=== PATIENT | male | born 1960 | race Caucasian/White ===

== ENCOUNTER 2021-10-24 06:47 | Outpatient (CLI) | payer BC, SELFPAY | END 2021-10-24 06:48 | disposition home or self-care (01) | PROVIDERS: PCP Family Medicine; Visit Provider Family Medicine | DX: M54.16 Radiculopathy, lumbar region (principal); M51.36 Other intervertebral disc degeneration, lumbar region; M51.26 Other intervertebral disc displacement, lumbar region | CPT/HCPCS: 64483; 64484; J1100; Q9966 ==

== ENCOUNTER 2021-12-12 09:19 | Outpatient (CLI) | payer BC, SELFPAY | END 2021-12-12 09:20 | disposition home or self-care (01) | LOC: INJ CL 09:19 | PROVIDERS: PCP Family Medicine; Visit Provider Family Medicine | DX: M54.16 Radiculopathy, lumbar region (principal) | CPT/HCPCS: 64483; 64484; J1100; Q9966 ==

== ENCOUNTER 2022-01-16 07:30 | Outpatient (CLI) | payer BC, SELFPAY | END 2022-01-16 07:31 | disposition home or self-care (01) | LOC: INJ CL 07:30 | PROVIDERS: PCP Family Medicine; Visit Provider Family Medicine | DX: M54.16 Radiculopathy, lumbar region (principal) | CPT/HCPCS: 64483; 64484; Q9966 ==

== ENCOUNTER 2022-01-23 13:48 | Outpatient (CLI) | payer BC, SELFPAY | END 2022-01-23 13:49 | disposition home or self-care (01) | LOC: INJ CL 13:49 | PROVIDERS: PCP Family Medicine; Visit Provider Family Medicine | DX: M54.16 Radiculopathy, lumbar region (principal) | CPT/HCPCS: 64483; Q9966 ==

== ENCOUNTER 2022-03-15 13:23 | Outpatient (CLI) | payer BC, OTHER, SELFPAY ==
--- NOTE | 2022-03-15 13:45 | MR_ITS ---
[address] [address] Phone:?[phone] Fax:?[phone] Referring Physician Information: Codey Mcleod M.D., PhD [address] [facility] [address] Phone:? Fax:?[phone] Patient:?Dusty Quiroga D.O.B:?1960 Sex:?Male Phone:?[phone] [facility] MRN:?[id number] Exam Date:?03/15/2022 ? EXAM: MR LUMBAR SPINE WITHOUT CONTRAST CLINICAL INFORMATION: Lumbar radiculopathy, HNP. COMPARISON:?MRI lumbar spine 10/10/2021. TECHNICAL INFORMATION: T1 and T2 FSE and STIR sagittal thin sections through the lumbar spine with T1 and T2 FSE axial sections at selected levels. INTERPRETATION: 5 lumbar levels in lordotic alignment. Conus medullaris terminates at L1 and has normal signal. No evidence of arachnoid disease or abnormal neural development. Benign vertebral body hemangioma in L3. Paraspinal soft tissues appear normal. L5-S1: Mild to moderate disc degeneration, central right 5 mm disc protrusion without impingement, normal facet joints. No central or foraminal stenosis. L4-5: Moderate disc degeneration, central 5-6 mm disc herniation, encroaches left greater than right L5 nerve roots, normal facet joints. No central stenosis. Mild bilateral foraminal stenosis. L3-4: Mild disc degeneration, disc bulge and right foraminal to far lateral 5 mm disc herniation extraforaminal the right L3 nerve, normal facet joints. No central stenosis. Mild to moderate right and mild left foraminal stenosis. L2-3: Mild disc degeneration, right extraforaminal 5 mm disc herniation displaces the right L2 nerve, normal facet joints. No central stenosis. Mild right foraminal stenosis. L1-2: Mild disc degeneration, normal facet joints. No central or foraminal stenosis. T12-L1: No central or foraminal stenosis. Compared to 10/10/2021 the L4-5 central disc herniation has slightly increased. The L5-S1 disc herniation has partially regressed. CONCLUSION: Multilevel spondylosis with the following notable findings: 1. L2-3 and L3-4 right-sided disc herniations displace the extraforaminal right L2/L3 nerves. 2. L4-5 central disc herniation encroaching the L5 nerve roots. 3. L5-S1 central herniation/osteophyte without neural compromise. Electronically signed on 03/18/2022 4:16:00 PM by Toro Combs M.D.
== END 2022-03-15 13:24 | disposition home or self-care (01) ==
PROVIDERS: PCP Family Medicine; Visit Provider Orthopaedic Surgery Orthopaedic Surgery of the Spine
DX: M51.16 Intervertebral disc disorders with radiculopathy, lumbar region (principal); M51.26 Other intervertebral disc displacement, lumbar region
CPT/HCPCS: 72148

== ENCOUNTER 2022-09-10 10:00 | Outpatient (RCR) | payer OTHER, SELFPAY | END 2022-12-21 09:17 | disposition home or self-care (01) | PROVIDERS: PCP Family Medicine; Visit Provider Orthopaedic Surgery Orthopaedic Surgery of the Spine | DX: M54.50 Low back pain, unspecified (principal); R53.1 Weakness; Z51.89 Encounter for other specified aftercare | CPT/HCPCS: 97110; 97140; 97161 ==

== ENCOUNTER 2023-10-01 14:01 | Outpatient (CLI) | payer MEDICARE, SELFPAY ==
--- OUTSIDE RECORDS SUMMARY | 2023-10-01 14:06 | XMS_ITS | Continuity of Care Document ---
Author Organization [place] [facility] Address [address] [address] Assessment No assessment recorded. Plan of Treatment Reminders Order Date Submit Date Provider Last Modified By Organization Details Last Modified Time Details Appointments LAB BLOOD DRAW 2023 11:10A [facility] Not available Not available Not available ESTABL ISHED 10 2023 11:30P M Guillermo Sparks MD Not available Not available Not available Lab PSA, total, serum or plasma 2023 024 [email or web address] [facility], [address], [place], [address], 08/27/2023 09:35:27 urinal ysis, dipsti ck 2023 024 [email or web address] [facility], [address], [place], [address], 08/26/2023 12:23:12 Referral None record ed. Procedures None record ed. Surgeries None record ed. Imaging CT, abdome n + pelvis , w/o contra st - PLEASE CALL PT TO SCHEDU LE 2023 024 [email or web address] ro [facility], [address] , [place], [address], 09/10/2023 11:56:18 Medication Orders None record ed. Patient TargetsNo targets recorded. Patient InstructionsNo instructions recorded. Reason for Referral None Reported. Results Created Date Observation Date Name Description Value Unit Range Abnormal Flag LastModifiedBy Organization Detail LastModifiedTime 08/26/1925 0808/26/2023 urina lysis , dipst ick BLOOD Trace (5 RBC/uL ) Not Available [facility] [address], [place], [address], 08/26/2023 12:06:39 08/26/19 24 08/26/2023 urina lysis , dipst ick BILIRUBIN Negati ve Not Available [facility] [address], [place], [address], 08/26/2023 12:06:39 08/26/19 24 08/26/2023 urina lysis , dipst ick UROBILINOGEN 0.2 mg/dL (Norm) Not Available [facility] [address], [place], [address], 08/26/2023 12:06:39 08/26/19 24 08/26/2023 urina lysis , dipst ick KETONES Negati ve Not Available [facility] [address], [place], [address], 08/26/2023 12:06:39 08/26/19 24 08/26/2023 urina lysis , dipst ick PROTEIN Negati ve Not Available [facility] [address], [place], [address], 08/26/2023 12:06:39 08/26/19 24 08/26/2023 urina lysis , dipst ick NITRITES Negati ve Not Available [facility] [address], [place], [address], 08/26/2023 12:06:39 08/26/19 24 08/26/2023 urina lysis , dipst ick GLUCOSE Negati ve Not Available [facility] [address], [place], [address], 08/26/2023 12:06:39 08/26/19 24 08/26/2023 urina lysis , dipst ick p.H. 5.0 Not Available [facility] [address], [place], [address], 08/26/2023 12:06:39 08/26/19 24 08/26/2023 urina lysis , dipst ick S.G. (Specific [place]) 1.020 Not Available [facility] [address], [place], [address], 08/26/2023 12:06:39 08/26/19 24 08/26/2023 urina lysis , dipst ick LEUKOCYTES Negati ve Not Available [facility] [address], [place], [address], 08/26/2023 12:06:39 Result Notes None recorded. Procedures Surgical History Date Name Laterality Status Provider Name and Address Organization Details Recorded Time 4 Bladder Scan completed Abi juarez [facility] 08/26/2023 12:06:16 3 discectomy of spine completed Abi juarez [facility] 08/26/2023 12:05:09 Imaging Results None recorded. Procedure Notes None recorded. Medical Equipment None Reported. Allergies Allergen ID Allergen Name Allergen Category Reaction Reaction Severity Criticality Documentation Date Start Date Code Code System Note Provider Name and Address Organization Details Recorded Time 932877 codeine medicatio n Not available Not available Not available 08/20/20192016 2670 RxNorm Not Available [facility] 0 00:42:13 551163 Toradol medicatio n Not available Not available Not available 08/20/20192016 99609 RxNorm Not Available [facility] 0 00:42:13 123531 morphine medicatio n Not available Not available Not available 08/26/2023 7052 RxNorm Aib juarez [facility] 4 12:03:10 Medications Name Sig Start Date Stop Date Status Note LastModified by Organization Details LastModified Time methocarbamol 750 mg tablet TAKE ONE TABLET BY MOUTH FOUR TIMES DAILY NEEDED* active Not Available Not Available No t Available gabapentin 300 mg capsule TAKE TWO CAPSULES BY MOUTH THREE TIMES DAILY* active Not Available Not Available No t Available hydrochlorothi azide 25 mg tablet TAKE ONE TABLET BY MOUTH ONE TIME DAILY* active Not Available Not Available No t Available alfuzosin ER 10 mg tablet,extende d release 24 hr TAKE 1 TABLET BY MOUTH DAILY WITH A MEAL* active Not Available Not Available No t Available Probiotic active Not Available Not Earlene ilable Not Available Xarelto 10 mg tablet Take 1 Tablet (10 mg) by mouth once daily with a meal.* active Not Available Not Available No t Available Vitals Date Recorded Body height Body mass index (BMI) Body weight Provider Name and Address Organization Details Last Updated DateTime 08/26/2023 177.8 cm 35.2 kg/m2 885335.13 g Abi Almeida [facility] 08/26/2023 12:02:44 Social History Question Answer Notes LastModified by Organizat ion Details LastModified Time Tobacco Smoking Status Never Smoker Abi juarez [facility] 08/26/2023 12:04:34 What Is Your Level Of Alcohol Consumption? Occasional [email or web address] Information not available 08/26/2023 What Is Your Level Of Caffeine Consumption? Moderate [email or web address] Information not available 08/26/2023 Race White Information not available 08/26/2023 Ethnicity Not / [email or web address] Information not available 08/26/2023 Preferred Language Polish [email or web address] Information not available 08/26/2023 Sex: Unknown Functional Status None recorded. Mental Status None recorded. Family History Relationship Description Onset Age of this Age Resolved Age Notes Sister Family history of br east cancer Sister Family history of ca ncer of colon Medical History Condition Response Diabetes N Other Bleeding Disorder N High Blood Pressure Y Kidney Stones Y Cancer N Lung Disease N Depression N High Cholesterol N GERD/Acid Reflux N Heart Disease N Immunizations Vaccine Type Date Status Provider Name and Address Organization Details Recorded Time Influenza, split virus, quadrivalent, preservative 11/29/2015 completed Abi juarez [facility] 08/26/2023 12:02:53 Influenza, MDCK, quadrivalent, PF 12/17/2016 rashad Almeida null, [facility] 08/26/2023 12:02:53 zoster recombinant 04/27/2019 completed Abimeliza Almeida null, [facility] 08/26/2023 12:02:53 zoster recombinant 02/16/2019 completed Abimeliza Tatumon null, [facility] 08/26/2023 12:02:53 COVID-19, mRNA, LNP-S, PF, 30 mcg/0.3 mL dose 05/17/2020 completed Abimeliza Tatumon null, [facility] 08/26/2023 12:02:53 COVID-19, mRNA, LNP-S, PF, 30 mcg/0.3 mL dose 06/07/2020 completed Abi Almeida null, [facility] 08/26/2023 12:02:53 COVID-19, mRNA, LNP-S, PF, 30 mcg/0.3 mL dose 02/07/2021 [facility] 12:02:53 Pneumococcal conjugate PCV20, polysaccharide [id number] conjugate, adjuvant, PF 07/30/2023 completed Abi Almeida null, [facility] 08/26/2023 12:02:53 COVID-19, mRNA, LNP-S, bivalent, PF, 30 mcg/0.3 mL dose 11/15/2021 [facility] 08/26/[facility]23 12:02:53 Tdap 02/16/2019 completed Abi Almeida null, [facility] 08/26/2023 12:02:53 Influenza, split virus, trivalent, preservative 12/07/2008 completed Abi Almeida null, [facility] 08/26/2023 12:02:53 Influenza, split virus, trivalent, preservative 01/03/2010 completed Abi Juan Pablo null, [facility] 08/26/2023 12:02:53 Influenza, split virus, trivalent, preservative 01/06/2008 [facility] 12:02:53 Influenza, split virus, trivalent, preservative 01/28/2012 completed Abi Almeida null, [facility] 08/26/2023 12:02:53 Influenza, split virus, quadrivalent, PF 11/20/2022 completed Abimeliza Almeida null, [facility] 08/26/2023 12:02:53 Influenza, split virus, quadrivalent, PF 12/02/2017 completed Abi Almeida null, [facility] 08/26/2023 12:02:53 Influenza, split virus, quadrivalent, PF 12/08/2018 completed Abi Almeida null, [facility] 08/26/2023 12:02:53 Influenza, split virus, quadrivalent, PF 12/12/2020 completed Abi Almeida null, [facility] 08/26/2023 12:02:54 Influenza, split virus, quadrivalent, PF 12/21/2019 completed Abi Almeida null, [facility] 08/26/2023 12:02:54 Influenza, split virus, quadrivalent, 12/20/2021 completed Abi Almeida null, [facility] 08/26/2023 12:02:54 Past Encounters Encounter ID Performer Location Encounter Start Date Encounter Closed Date Diagnosis/Indication Diagnosis SNOMED-CT Code [id number] Guillermo Sparks MD [facility] [address] [place] [address] 08/26/2023 11:29:53 08/27/2023 15:17:25 Lower urinary tract symptoms due to benign prostatic hypertrophy 46249085628983 Kidney stone 38355065 Prostate s pecific antigen above reference range 194035761 Health Concerns Section Related Observation LastModified by Organization Detai ls LastModified Time None Recorded Concern Status LastModified by Organization Details LastModified Time None Recorded Payers Encounter Date Sequence Insurance Name Policy Number Policy Nobles Covered Member ID Nobles Member ID Guarantor Name 08/26/2023 1 [place] MEDICARE COST [id number] Dusty Quiroga [id number] Dusty Quiroga Notes Date Note Type Note Provider Name and Address Organization Details Recorded Time 08/26/2023 text/html HPI Notes: 63 yo male with history of HTN, DVT (on Xarelto), CKD (stage 3), GERD (s/p lap. Kate fundoplication), kidney stones (since age 27 - 100% Calcium oxalate monohydrate), microscopic hematuria, and BPH. He had a negative hematuria evaluation in 2014 - CT Urogram (09/24-) revealed bilateral kidney stones, Left renal cysts and parapelvic cyst, and a 1 cm adrenal adenoma - Cystoscopy (09/24/14) revealed mild BPH - urine FISH was negative. He tried Flomax 0.4 mg QOD (light headedness). He is currently on Alfuzosin 10 mg daily. - s/p Left ESWL with stent placement - (01/20/16) - Dr. Calderon - s/p Right ESWL - (08/02/16) He presents for elevated PSA. He denies abdominal or flank pain. He voids every 3-4 hours during the day and 0x/night. He reports hesitancy and slow stream. - UA - 1+ blood - no LE - PVR = 9 mL PSA - 0.59 (11/10/13) - 0.79 (09/27/14) - 0.78 (10/31/15) - 1.06 (08/05/17) - 1.42 (08/04/18) - 1.37 (12/08/18) - 1.60 (11/02/19) - 2.40 (06/27/20) - 2.02 (09/26/20) - 2.94 (07/30/23) CT scan (08/05/17) - Right - no stones - Left - 2 mm stone (lower pole) - + parapelvic cyst CT scan (08/04/18) - No stones in either kidney - Left parapelvic cyst 24 Hr urine (10/20/13) revealed high Calcium (308 mg), high Sodium (253 mg), and high Phosphorous (1.245) - good urine volume (3.76 L) and good Citrate (679 mg). PTH = 80.4 (11/10/13). Guillermo Sparks MD [address], [place], [address], [facility] 08/26/2023 23:11:47
--- OUTSIDE RECORDS SUMMARY | 2023-10-01 14:06 | XMS_ITS | Data Portability ---
Author Organization [place] [facility] Address [address] [place] [address] Assessment No assessment recorded. Plan of Treatment Reminders Order Date Submit Date Provider Last Modified By Organization Details Last Modified Time Details Appointments LAB BLOOD DRAW 2023 11:10A [facility] Not available Not available Not available ESTABL ISHED 10 2023 11:30P M Guillermo Sparks MD Not available Not available Not available Lab PSA, total, serum or plasma 2023 024 [email or web address] [facility], [address], [place], [address], 08/27/2023 09:35:27 urinal ysis, dipsti ck 2023 024 [email or web address] [facility], [address], [place], [address], 08/26/2023 12:23:12 Referral None record ed. Procedures None record ed. Surgeries None record ed. Imaging CT, abdome n + pelvis , w/o contra st - PLEASE CALL PT TO SCHEDU LE 2023 024 [email or web address] ro [facility], [address], [place], [address], 09/10/2023 11:56:18 Medication Orders None record ed. Patient TargetsNo targets recorded. Patient InstructionsNo instructions recorded. Reason for Referral None Reported. Results Created Date Observation Date Name Description Value Unit Range Abnormal Flag LastModifiedBy Organization Detail LastModifiedTime 08/26/19 24 08/26/2023 urina lysis , dipst ick BLOOD Trace (5 RBC/uL ) Not Available [facility] [address], [place], [address], 08/26/2023 12:06:39 08/26/19 24 08/26/2023 urina lysis , dipst ick BILIRUBIN Negati ve Not Available [facility] [address], [place], [address], 08/26/2023 12:06:39 08/26/19 24 08/26/2023 urina lysis , dipst ick UROBILINOGEN 0.2 mg/dL (Norm) Not Available [facility] [address], [place], [address], 08/26/2023 12:06:39 08/26/19 24 08/26/2023 urina lysis , dipst ick KETONES Negati ve Not Available [facility] [address], [place], [address], 08/26/2023 12:06:39 08/26/19 24 08/26/2023 urina lysis , dipst ick PROTEIN Negati ve Not Available [facility] [address], [place], [address], 08/26/2023 12:06:39 08/26/19 24 08/26/2023 urina lysis , dipst ick NITRITES Negati ve Not Available [facility] [address], [place], [address], 08/26/2023 12:06:39 08/26/19 24 08/26/2023 urina lysis , dipst ick GLUCOSE Negati ve Not Available [facility] [address], [place], [address], 08/26/2023 12:06:39 08/26/19 24 08/26/2023 urina lysis , dipst ick p.H. 5.0 Not Available [facility] [address], [place], [address], 08/26/2023 12:06:39 08/26/19 24 08/26/2023 urina lysis , dipst ick S.G. (Specific [place]) 1.020 Not Available [facility] [address], [place], [address], 08/26/2023 12:06:39 08/26/19 24 08/26/2023 urina lysis , dipst ick LEUKOCYTES Negati ve Not Available [facility] [address], [place], [address], 08/26/2023 12:06:39 Result Notes None recorded. Procedures Surgical History Date Name Laterality Status Provider Name and Address Organization Details Recorded Time 4 Bladder Scan completed Abi juarez [facility] 08/26/2023 12:06:16 3 discectomy of spine completed Abi juarez [facility] 08/26/2023 12:05:09 Imaging Results None recorded. Procedure Notes None recorded. Medical Equipment None Reported. Allergies Allergen ID Allergen Name Allergen Category Reaction Reaction Severity Criticality Documentation Date Start Date Code Code System Note Provider Name and Address Organization Details Recorded Time 065531 codeine medicatio n Not available Not available Not available 08/20/20192016 2670 RxNorm Not Available [facility] 0 00:42:13 629454 Toradol medicatio n Not available Not available Not available 08/20/20192016 87131 RxNorm Not Available [facility] 0 00:42:13 031788 morphine medicatio n Not available Not available Not available 08/26/2023 7052 RxNorm Abi juarez [facility] 4 12:03:10 Medications Name Sig Start [...] Updated DateTime 08/26/2023 177.8 cm 35.2 kg/m2 973548.13 g Abi Almeida [facility] 08/26/2023 12:02:44 Social History Question Answer Notes LastModified by Organizat ion Details LastModified Time Tobacco Smoking Status Never Smoker Abi juarez [facility] 08/26/2023 12:04:34 What Is Your Level Of Alcohol Consumption? Occasional [email or web address] Information not available 08/26/2023 What Is Your Level Of Caffeine Consumption? Moderate [email or web address] Information not available 08/26/2023 Race White [email or web address] Information not available 08/26/2023 Ethnicity Not / [email or web address] Information not available 08/26/2023 Preferred Language Icelandic [email or web address] Information not available 08/26/2023 Sex: Unknown Functional Status None recorded. Mental Status None recorded. Family History Relationship Description Onset Age of this Age Resolved Age Notes Sister Family history of br east cancer Sister Family history of ca ncer of colon Medical History Condition Response Other High Blood Pressure Y Kidney Stones Y Depression N Lung Disease N GERD/Acid Reflux N Diabetes N Bleeding Disorder N Cancer N High Cholesterol N Heart Disease N Immunizations Vaccine Type Date Status Provider Name and Address Organization Details Recorded Time Influenza, split virus, quadrivalent, preservative 11/29/2015 completed Abi juarez [facility] 08/26/2023 12:02:53 Influenza, MDCK, quadrivalent, PF 12/17/2016 completed Abi Almeida null, [facility] 08/26/2023 12:02:53 zoster recombinant 04/27/2019 completed Abi Almeida null, [facility] 08/26/2023 12:02:53 zoster recombinant 02/16/2019 completed Abi Almeida null, [facility] 08/26/2023 12:02:53 COVID-19, mRNA, LNP-S, PF, 30 mcg/0.3 mL dose 05/17/2020 completed Abi Almeida null, [facility] 08/26/2023 12:02:53 COVID-19, mRNA, LNP-S, PF, 30 mcg/0.3 mL dose 06/07/2020 completed Abi Almeida null, [facility] 08/26/2023 12:02:53 COVID-19, mRNA, LNP-S, PF, 30 mcg/0.3 mL dose 02/07/2021 [facility] 12:02:53 Pneumococcal conjugate PCV20, polysaccharide [id number] conjugate, adjuvant, PF 07/30/2023 [facility] 08/26/[facility] 12:02:53 COVID-19, mRNA, LNP-S, bivalent, PF, 30 mcg/0.3 mL dose 11/15/2021 completed [facility] 08/26/2023 12:02:53 Tdap 02/16/2019 completed Abi Almeida null, [facility] 08/26/2023 12:02:53 Influenza, split virus, trivalent, preservative 12/07/2008 completed Abi Almeida null, [facility] 08/26/2023 12:02:53 Influenza, split virus, trivalent, preservative 01/03/2010 completed Abi Almeida null, [facility] 08/26/2023 12:02:53 Influenza, split virus, trivalent, preservative 01/06/2008 completed Abi Almeida null, [facility] 08/26/2023 12:02:53 Influenza, split virus, trivalent, preservative 01/28/2012 completed Abi Almeida null, [facility] 08/26/2023 12:02:53 Influenza, split virus, quadrivalent, PF 11/20/2022 completed Abi Almeida null, [facility] 08/26/2023 12:02:53 Influenza, split virus, quadrivalent, PF 12/02/2017 completed Abi Almeida null, [facility] 08/26/2023 12:02:53 Influenza, split virus, quadrivalent, PF 12/08/2018 completed Abi Almeida null, [facility] 08/26/2023 12:02:53 Influenza, split virus, quadrivalent, PF 12/12/2020 completed Abi Almeida null, [facility] 08/26/2023 12:02:54 Influenza, split virus, quadrivalent, PF 12/21/2019 completed Abi Almeida null, [facility] 08/26/2023 12:02:54 Influenza, split virus, quadrivalent, 12/20/2021 completed Abi Almeida null, [facility] 08/26/2023 12:02:54 Past Encounters Encounter ID Performer Location Encounter Start Date Encounter Closed Date Diagnosis/Indication Diagnosis SNOMED-CT Code [id number] Guillermo Sparks MD [facility] [address] [place] [address] 08/26/2023 11:29:53 08/27/2023 15:17:25 Lower urinary tract symptoms due to benign prostatic hypertrophy 50673738165792 Kidney stone 12227712 Prostate s pecific antigen above reference range 830478688 Health Concerns Section Related Observation LastModified by Organization Detai ls LastModified Time None Recorded Concern Status LastModified by Organization Details LastModified Time None Recorded Advance Directives Directive None Recorded Payers Encounter Date Sequence Insurance Name Policy Number Policy Nobles Covered Member ID Nobles Member ID Guarantor Name 08/26/2023 1 [place]IC[place] COST [id number] Dusty Quiroga [id number] Dusty Quiroga Notes Date Note Type Note [...] PTH = 80.4 (11/10/13). Guillermo Sparks MD [address], [place], [address], [facility] 08/26/2023 23:11:47
--- OUTSIDE RECORDS SUMMARY | 2023-10-01 14:06 | XMS_ITS | Clinical Summary ---
Author Organization [employer] [facility] Address [place], [place] [address] Care Team Providers Care Case Mgr Name Role Phone Tien Mulligan MD Primary Care Provider [phone] Allergies Active Allergy Reactions Criticality Noted Date Comments Codeine Hives 10/02/2006 Morphine Hives 10/02/2006 Ketorolac Renal Failure 08/17/2013 Medications Medication Sig Dispensed Refills Start Date End Date Status lactobacillus 300 - acidophilus 250 (PROBIOTIC AND ACIDOPHILUS) cap Take 1 Capsule by mouth once daily. 0 06/05/2011 Active medical supply, miscellaneous (GRADUATED COMPRESSION STOCKINGS)Indicatio ns:Deep vein thrombosis (DVT) of both lower extremities, unspecified chronicity, unspecified vein (HC) 20-30 mm/Hg thigh high compression stockings - Venous insufficiency 6 Packet 01/11/2020 Active rivaroxaban (Xarelto) 10 mg tabletIndications:D eep vein thrombosis (DVT) of both lower extremities, unspecified chronicity, unspecified vein (HC) Take 1 Tablet (10 mg) by mouth once daily with evening meal. 90 Tablet 3 07/30/2023 Active hydroCHLOROthiazide 25 mg tabletIndications:E ssential hypertension Take 1 Tablet (25 mg) by mouth once daily. 90 Tablet 3 07/30/2023 Active alfuzosin (UROXATRAL) 10 mg Sustained-Release tabletIndications:B enign non-nodular prostatic hyperplasia without lower urinary tract symptoms TAKE 1 TABLET BY MOUTH DAILY WITH A MEAL 90 Tablet 3 07/30/2023 Active gabapentin (NEURONTIN) 300 mg capsuleIndications: Lumbar radiculopathy Take 2 Capsules (600 mg) by mouth three times daily. 540 Capsule 3 07/30/2023 Active methocarbamoL (ROBAXIN) 750 mg tabletIndications:M uscle spasm,Racing heart beat Take 1 Tablet (750 mg) by mouth 3 times daily if needed for Muscle Spasm. Wait until they call for this. 60 Tablet 1 07/30/2023 Active predniSONE (DELTASONE) 10 mg tabletIndications:R ight leg pain,Lumbar radiculopathy,Histo ry of lumbar laminectomy for spinal cord decompression,Bulge of lumbar disc without myelopathy Take 2 Tablets (20 mg) by mouth two times daily with meals for 3 days, THEN 1 Tablet (10 mg) three times daily with meals for 3 days, THEN 2 Tablets (20 mg) once daily with a meal for 3 days, THEN 1 Tablet (10 mg) once daily with a meal for 3 days. 30 Tablet 09/25/2023 Active Active Problems Problem Noted Date Diagnosed Date Herniated nucleus pulposus, L3-4 03/20/2022 Nonrheumatic aortic valve insufficiency 03/15/19 Overview: Mild. Present on 03/15/22 echocardiogram. Repeat echo recommended in 3-5 years or sooner if symptomatic. Status post laparoscopic Kaet fundoplication 0 03/14/2022 Vertigo 03/14/2022 Lumbar radiculopathy 11/22/2021 History of pulmonary embolism and right DVT 01/02 Overview: The following is from a vascular surgery consult with Dr. Russ at [facility]: I had a long discussion with the patient about the pathophysiology, diagnosis, management and prognosis of venous thromboembolism and discussed the current guidelines for the management of unprovoked event recommending long-term anticoagulation. 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 Continue on Xarelto 15 mg twice daily to finish 3 weeks then transition to 20 mg daily with food. 6 months later, he could transition to Xarelto 10 mg without food for long-term as long as his bleeding risk is low. Prescribed her thigh-high, 20 to 30 mmHg compression stockings and advised that he wears them daily since he continues to have considerable pain and swelling. Should have a CBC and creatinine with primary care physician every 6 to 12 months. Advised to avoid long peers of sitting or standing. Advised with leg elevation resting. Advised with daily walk exercises. 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 Essential hypertension 12/02/2017 MRSA (methicillin resistant staph aureus) cultur e positive 03/17/2016 CKD (chronic kidney disease) stage 3, GFR 30-59 ml/min 01/19/2016 Hydronephrosis of left kidney 01/19/2016 Obesity (BMI 30-39.9) 01/19/2016 Benign non-nodular prostatic hyperplasia without lower urinary tract symptoms 05/02/2015 Adenomatous colon polyp 12/30/2013 Overview: Colonoscopy 12/2013 polyp repeat in 5 years Colonoscopy 02/2019 normal, repeat in 5 years Basal cell cancer 08/21/2011 Calculus of kidney 07/18/2007 Esophageal reflux 05/09/2007 Overview: EGD 12/2013 no Bravo's, no follow up EGD needed EGD 09/2019 5 cm Hiatal hernia, intestinal metaplasia at z-line, Bravo's unlike Diaphragmatic hernia without mention of obstruction or gangrene 05/09/2007 Resolved Problems Problem Noted Date Diagnosed Date Resolved Date HTN (hypertension) 05/16/2009 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 [address] [place] [address] James House MD Musculoskeletal Problem (Follow up back pain. Surgery 03/2022) 09/25/2023 Travel 09/06/2023 11:00 AM CDT Ancillary Procedure [facility] [address] [place] [address] 09/06/2023 Travel 08/26/2023 Transcribe Orders [facility] Medical Imaging [address] [place] [address] Guillermo Sparks MD 08/01/2023 4:00 PM CDT Office Visit [place] [address] [place] [address] 07/30/2023 12:40 PM CDT Office Visit [facility] [address] [place] [address] Tien Mulligan MD Medicare [facility] Visit (63 years); Immunization/Injection 07/30/2023 Travel from Last 3 Months Immunizations Name Administration Dates Next Due AMB Influenza, IIV3 (Age >=3 years)(Flu Clinic Only) 12/07/2008 AMB Influenza, IIV4 PF (=>6 mos Flulaval,Fluzone Fluarix)(Flu Clinic Only) 12/21/2019,12/08/2018,12/17/2016 Influenza, IIV3 (Age >=3 years) 01/28/2012,01/03,01/06/2008 Influenza, IIV4 11/20/2022,,12/12/2020,2017,11/28/2015 Pneumococcal Conj 20-valent (Prevnar 20) 07/30/2023 Td (Age >=7 Years) 05/11/2008,05/21/1993 Tdap 02/16/2019 Zoster (Shingrix-RZV, recombinant) 04/27/2019, Family History Medical History Relation Name Comments Heart Disease Father PA at 87 and d ied shortly after of CHF/History of Atrial Fibrillation Hypertension Father Other Father at 96 of o ld age Cancer-breast Maternal Uncle Diabetes Mother Age 60 Cancer-colon Paternal Aunt Stroke Paternal Grandmother ag e 60 Cancer Paternal Uncle 1 Esophageal Cancer Paternal Uncle 2 Kidney Stroke Paternal Uncle 3 Cancer-breast Sister 1 Leah remission Cancer-colon Sister 1 Leah in chemo as of 02/2019 Other Sister 1 Leah both sisters wi th hx of nephrolithiasis Scleroderma Sister 2 Pretty Relation Name Status Comments Brother Richi Alive Father Maternal Uncle Mother Paternal Aunt Paternal Grandmother Paternal Uncle 1 Paternal Uncle 2 Paternal Uncle 3 Sister 1 Leah Sister 2 Pretty Alive Sister 3 Sirena Alive Social History Tobacco Use Types Packs/Day Years Used Date Smoking Tobacco: Never Smokeless Tobacco: Never Tobacco Cessation:Counseling Given: Yes Alcohol Use Standard Drinks/Week Comments Yes 0 (1 standard drink = 0.6 oz pur e alcohol) see screening PHQ-2 Answer Date Recorded PHQ-2 TOTAL SCORE 0 07/30/2023 Social Connections Answer Date Recorded Frequency of Communication with Friends and Fami ly 0 07/30/2023 Alcohol Use Answer Date Recorded How often do you have a drink containing alcohol ? 2 07/30/2023 How many drinks containing a lcohol do you have on a typical day when you are drinking? 0 07/30/2023 How often do you have five or more drinks on one occasion? 0 07/30/2023 Financial Resource Strain Answer Date R ecorded Difficulty of Paying Living Expenses 3 07/30/2023 Difficulty of Paying Living Expenses Not on file 07/30/2023 Food Insecurity Answer Date Recorded Worried About Running Out of Food in the Last Ye ar 1 07/30/2023 Transportation Needs Answer Date Record ed Lack of Transportation (Medical) 1 07/30/2023 Housing Stability Answer Date Recorded Unable to Pay for Housing in the Last Year 1 07/30/2023 Sex and Gender Information Value Date Recorded Sex Assigned at Not on file Gender Identity Not on file Sexual Orientation Not on file Obstetrics History Last Filed Vital Signs Vital Sign Reading Time Taken Comments Blood Pressure 147/89 09/25/2023 11:01 AM CDT Pulse 72 09/25/2023 11:01 AM CDT Temperature 36.8 ??C (98.2 ??F) 09/25/2023 11:01 AM C DT Respiratory Rate 14 03/20/2022 4:45 PM FIELD INVESTIGATOR Oxygen Saturation 96% 09/25/2023 11:01 AM CDT Inhaled Oxygen Concentration - - Weight 110.2 kg (243 lb) 09/25/2023 11:01 AM CDT shoes on Height 177.9 cm (5' 10.04) 07/30/2023 12:34 PM CDT Body Mass Index 34.83 07/30/2023 12:34 PM CDT Plan of Treatment Upcoming Encounters Date Type Department Care Team (Late st Contact Info) Description 10/14/2023 9:50 AM CDT Office Visit [facility] [address] [place] [address] [place] [address] [place] [address] [place], [place] [id number] Health Maintenance Due Date Last Done Comments HIV for age 15-65 1975 COVID-19 vaccine series (2022- season) 2022 11/15/2021, 02/07/2021, 06/07/2020, Additional history exists Influenza for age 65+ 11/03/2023 11/20/2022 , 12/20/2021, 12/12/2020, Additional history exists Colonoscopy through age 75 02/04/202402/03, 02/03/2019, 02/03/2019, Additional history exists BMI (ht and wt on same day) for age 18+ 07/29/2024 07/30/2023, 03/14/2022, 01/31/2022, Additional history exists Depression screening for age 12+ 07/29/2024 07/30/2023, 08/22/2022, 12/12/2020, Additional history exists Medicare Wellness for age 65+ 07/30/2024 07/30/2023 Lipids for age 45-75 07/29/2028 07/30/2023, 12/12/2020, 12/05/2020, Additional history exists Tetanus booster 02/16/2029 02/16/2019, 05/02, 05/21/1993 Tdap Completed 02/16/2019 Zoster (shingles) series for age 50+ Completed 04/27/2019, 02/16/2019 Hepatitis C screening for ag e 18-79 Completed 11/02/2019 Pneumococcal series for age 65+ Completed 4 Medical Devices Implanted Type Area Machine Lay Out Worker Device Identifier Shelf Expiration Date Model / Serial / Lot Stent Uret [id number] Contour - [id number] Implanted:Qty: 1 on 01/20/2016 by Paul Calderon MD at [facility] Left: Ureter [facility] Urology [id number] / / [id number] Procedures Procedure Name Priority Date/Time Associated Diagnosis Comments CT ABDOMEN PELVIS STONE PROTOCOL WO Routine 09/06/2023 10:58 AM CDT Calculus of kidney EXTENDED HOLTER Routine 08/29/2023 Racing heart beat EKG 12 LEAD Routine 07/31/2023 8:58 AM CDT Racing heart beat Low blood pressure reading PA READING EKG - NO CHARGE, COMP ONLY Routine 07/31/2023 8:57 AM CDT Racing heart beat Low blood pressure reading RED CELL MORPHOLOGY Routine 07/30/2023 1 :52 PM CDT Deep vein thrombosis (DVT) of both lower extremities, unspecified chronicity, unspecified vein (HC) PLATELET ESTIMATE Routine 07/30/2023 1:5 2 PM CDT Deep vein thrombosis (DVT) of both lower extremities, unspecified chronicity, unspecified vein (HC) MANUAL DIFFERENTIAL Routine 07/30/2023 1 :52 PM CDT Deep vein thrombosis (DVT) of both lower extremities, unspecified chronicity, unspecified vein (HC) CBC WITH AUTO DIFFERENTIAL Routine 07/30/2023 1:52 PM CDT Deep vein thrombosis (DVT) of both lower extremities, unspecified chronicity, unspecified vein (HC) PSA TOTAL SCREEN Routine 07/30/2023 1:52 PM CDT Prostate cancer screening LIPID PANEL W REFLEX MEASURED LDL Routine 07/30/2023 1:52 PM CDT Lipid screening BASIC METABOLIC PANEL Routine 07/30/2023 1:52 PM CDT Essential hypertension TSH WITH REFLEX Routine 07/30/2023 1:52 PM CDT Racing heart beat ALT (SGPT) Routine 07/30/2023 1:52 PM CDT Deep vein thrombosis (DVT) of both lower extremities, unspecified chronicity, unspecified vein (HC) CBC WITH AUTO DIFFERENTIAL Routine 07/30/2023 1:52 PM CDT Deep vein thrombosis (DVT) of both lower extremities, unspecified chronicity, unspecified vein (HC) ANTI HCV Routine 11/02/2019 2:00 PM CDT Need for hepatitis C screening test COLONOSCOPY SCREENING Routine 02/03/2019 8:53 AM FIELD INVESTIGATOR History of colon polyps from Last 3 Months or Most Recently Relevant to Health Maintenance Results * CT ABDOMEN PELVIS STONE PROTOCOL WO (09/06/2023 10:58 AM CDT) Anatomical Region Laterality Modality Abdomen, Pelvis, AORTA, LIVER, SPLEEN Computed Tomography 09/06/2023 1:05 PM CDT Impressions 09/06/2023 1:05 PM CDT 1. No acute abnormality in the abdomen or pelvis. 2. Punctate nonobstructing bilateral renal calculi. No radiopaque ureteral or bladder calculi. 3. Colonic diverticulosis. Please note that all CT scans at this facility use dose modulation, iterative reconstruction, and/or weight-based dosing when appropriate to reduce radiation dose to as low as reasonably achievable. Dictated by Rakesh Ponce MD @ 09/06/2023 1:05:24 PM (Electronically Signed) Narrative 09/06/2023 1:05 PM CDT For Patients: ??As a result of the Century Cures Act, medical imaging exams and procedure reports are released immediately into your electronic medical record. ??You may view this report before your referring provider. ??If you have questions, please contact your health care provider. INDICATION: Calculus of kidney. TECHNIQUE: Noncontrast CT images of the abdomen and pelvis. COMPARISON: CT abdomen pelvis 08/04/2018. FINDINGS: No concerning opacities in the visualized lungs. No pleural effusion. The heart size is normal. The liver, gallbladder, spleen, and pancreas are unremarkable. The adrenal glands are unremarkable. Punctate nonobstructing renal calculi bilaterally, measuring up to 2 mm within the upper pole left kidney. Left parapelvic cysts. No radiopaque renal or bladder calculi. The stomach is underdistended. No abnormally dilated loops of bowel. Colonic diverticulosis. No pathologically enlarged lymph nodes. The abdominal aorta is normal in caliber. No free fluid or free air. The urinary bladder is underdistended. The prostate gland is present. Multilevel lumbar spondylosis. No aggressive osseous lesions. Procedure Note Rakesh Ponce MD - 09/06/2023 For Patients: As a result of the Cures Act, medical imagingexams and procedure reports are released immediately into your electronicmedical record. You may view this report before your referring provider.If you have questions, please contact your health care provider. INDICATION: Calculus of kidney. TECHNIQUE: Noncontrast CT images of the abdomen and pelvis. COMPARISON: CT abdomen pelvis 08/04/2018. FINDINGS: No concerning opacities in the visualized lungs. No pleural effusion. Theheart size is normal. The liver, gallbladder, spleen, and pancreas are unremarkable. The adrenal glands are unremarkable. Punctate nonobstructing renal calculi bilaterally, measuring up to 2 mmwithin the upper pole left kidney. Left parapelvic cysts. No radiopaquerenal or bladder calculi. The stomach is underdistended. No abnormally dilated loops of bowel.Colonic diverticulosis. No pathologically enlarged lymph nodes. The abdominal aorta is normal in caliber. No free fluid or free air. The urinary bladder is underdistended. The prostate gland is present. Multilevel lumbar spondylosis. No aggressive osseous lesions. IMPRESSION: 1. No acute abnormality in the abdomen or pelvis. 2. Punctate nonobstructing bilateral renal calculi. No radiopaque ureteralor bladder calculi. 3. Colonic diverticulosis. Please note that all CT scans at this facility use dose modulation,iterative reconstruction, and/or weight-based dosing when appropriate toreduce radiation dose to as low as reasonably achievable. Dictated by Rakesh Ponce MD @ 09/06/2023 1:05:24 PM (Electronically Signed) Guillermo Sparks MD CT * EXTENDED HOLTER (08/29/2023) Tien Mulligan MD CARDIAC SERVICES O RD * EKG 12 LEAD (07/31/2023 8:58 AM CDT) Tien Mulligan MD EKG ORD * PA READING EKG - NO CHARGE, COMP ONLY (07/31/2023 8:57 AM CDT) Tien Mulligan MD PB - PROVIDER READ INGS * CBC WITH AUTO DIFFERENTIAL (07/30/2023 1:52 PM CDT) WHITE BLOOD COUNT 8.4 4.5 - 11.0 thou/cu mm 07/30/2023 2:28 PM CDT [facility] RED BLOOD COUNT 4.83 4.30 - 5.90 mil/cu mm 07/30/2023 2:28 PM CDT [facility] HEMOGLOBIN 15.9 13.5 - 17.5 g/dL 07/30/2023 2:28 PM CDT [facility] HEMATOCRIT 44.7 37.0 - 53.0 % 07/30/2023 2:28 PM CDT [facility] MCV 93 80 - 100 fL 07/30/2023 2:28 PM CDT [facility] MCH 32.9 26.0 - 34.0 pg 07/30/2023 2:28 PM CDT [facility] MCHC 35.6 32.0 - 36.0 g/dL 07/30/2023 2:28 PM CDT [facility] RDW 12.4 11.5 - 15.5 % 07/30/2023 2:28 PM CDT [facility] PLATELET COUNT 169 140 - 440 thou/cu mm 07/30/2023 2:28 PM CDT [facility] MPV 9.6 6.5 - 11.0 fL 07/30/2023 2:28 PM CDT [facility] Blood BLOOD SPECIMEN / Unknown Venipuncture / Unknown 07/30/2023 1:52 PM CDT 07/30/2023 1:54 PM CDT Tien Mulligan MD HEMATOLOGY [facility] [address] [place] [address], [place] [phone] * RED CELL MORPHOLOGY (07/30/2023 1:52 PM CDT) RBC COMMENT RBC morphology appears normal RBC morphology appears normal, RBC morphology within normal limits for newborns. 07/30/2023 2:28 PM CDT [facility] Blood BLOOD SPECIMEN / Unknown Venipuncture / Unknown 07/30/2023 1:52 PM CDT 07/30/2023 1:54 PM CDT Tien Mulligan MD HEMATOLOGY Performing Organization Address City/[facility]/ZIP Co de Phone Number [facility] [address] [place] [address], * PLATELET ESTIMATE (07/30/2023 1:52 PM CDT) [facility] PLATELET ESTIMATE Adequate Adequate, No estimate 07/30/2023 2:28 PM CDT [facility] Blood BLOOD SPECIMEN / Unknown Venipuncture / Unknown 07/30/2023 1:52 PM CDT 07/30/2023 1:54 PM CDT Tien Mulligan MD HEMATOLOGY Performing Organization Address [facility] Co de Phone Number [facility] [address] [place] [address], * TSH WITH REFLEX (07/30/2023 1:52 PM CDT) [facility] TSH 0.96 0.27 - 4.20 uIU/mL 07/31/2023 3:40 AM CDT [facility] Blood BLOOD SPECIMEN / Unknown Venipuncture / Unknown 07/30/2023 1:52 PM CDT 07/30/2023 1:54 PM CDT Narrative [facility] - 07/31/2023 3:40 AM CDT In Adults, TSH values between 5.00 and 10.00 uIU/ml do not necessarily indicate the presence of Hypothyroidism. Correlation with clinical findings such as presence of goiter and/or Thyroperoxidase (TPO) Antibody may be helpful. For more information please refer to ARIEL 2004; 291: 228-238. Tien Mulligan MD CHEMISTRY [facility] [address] [place] [address], * (ABNORMAL) LIPID PANEL W REFLEX MEASURED LDL (07/30/2023 1:52 PM CDT) CHOLESTEROL,TOTAL 189 100 - 199 mg/dL 07/31/2023 3:40 AM CDT [facility] Comment: Cholesterol, Total Reference Ranges Desirable <200 mg/dL Borderline 200-239 mg/dL High >=240 mg/dL TRIGLYCERIDES 138 <150 mg/dL 07/31/2023 3:40 AM CDT [facility] HDL CHOLESTEROL 43 >40 mg/dL 3:40 AM CDT [facility] NON-HDL CHOLESTEROL 146(H) <145 mg/dl 07/31/2023 3:40 AM CDT [facility] CHOL/HDL RATIO 4.40 <4.50 07/31/2023 3:40 AM CDT [facility] LDL CHOLESTEROL 118 <=130 mg/dL 07/31/2023 3:40 AM CDT [facility] VLDL CHOLESTEROL 28 <=30 mg/dL 07/31/2023 3:40 AM CDT [facility] PROVIDER ORDERED STATUS RANDOM 07/31/2023 3:40 AM CDT [facility] Blood BLOOD SPECIMEN / Unknown Venipuncture / Unknown 07/30/2023 1:52 PM CDT 07/30/2023 1:54 PM CDT Tien Mulligan MD CHEMISTRY [facility] [address] [place] [address], * MANUAL DIFFERENTIAL (07/30/2023 1:52 PM CDT) % NEUTROPHILS 66.0 % 07/30/2023 2:28 PM CDT [facility] % LYMPHOCYTES 27.0 % 07/30/2023 2:28 PM CDT [facility] % MONOCYTES 6.0 % 07/30/2023 2:28 PM CDT [facility] % EOSINOPHILS 1.0 % 07/30/2023 2:28 PM CDT [facility] % BASOPHILS 0.0 % 07/30/2023 2:28 PM CDT [facility] NEUTROPHILS ABSOLUTE 5.5 1.7 - 7.0 thou/cu mm 07/30/2023 2:28 PM CDT [facility] LYMPHOCYTES ABSOLUTE 2.3 0.9 - 2.9 thou/cu mm 07/30/2023 2:28 PM CDT [facility] MONOCYTES ABSOLUTE 0.5 <0.9 thou/cu mm 07/30/2023 2:28 PM CDT [facility] EOSINOPHILS ABSOLUTE 0.1 <0.5 thou/cu mm 07/30/2023 2:28 PM CDT [facility] BASOPHILS ABSOLUTE 0.0 <0.3 thou/cu mm 07/30/2023 2:28 PM CDT [facility] Blood BLOOD SPECIMEN / Unknown Venipuncture / Unknown 07/30/2023 1:52 PM CDT 07/30/2023 1:54 PM CDT Tien Mulligan MD HEMATOLOGY [facility] [address] [place] [address], * ALT (SGPT) (07/30/2023 1:52 PM CDT) ALT (SGPT) 50 10 - 50 IU/L 07/31/2023 3:40 AM CDT [facility] Blood BLOOD SPECIMEN / Unknown Venipuncture / Unknown 07/30/2023 1:52 PM CDT 07/30/2023 1:54 PM CDT Tien Mulligan MD CHEMISTRY [facility] [address] [address], * (ABNORMAL) BASIC METABOLIC PANEL (07/30/2023 1:52 PM CDT) [facility] SODIUM 141 136 - 145 mmol/L 07/31/2023 3:40 AM CDT [facility] POTASSIUM 4.1 3.5 - 5.1 mmol/L 07/31/2023 3:40 AM T [facility] CHLORIDE 104 98 - 107 mmol/L 07/31/2023 3:40 AM T [facility] CO2,TOTAL 28 22 - 29 mmol/L 07/31/2023 3:40 AM T [facility] ANION GAP 9 5 - 18 07/31/2023 3:40 AM T [facility] GLUCOSE 107(H) 70 - 99 mg/dL 07/31/2023 3:40 AM T [facility] CALCIUM 9.9 8.8 - 10.2 mg/dL 07/31/2023 3:40 AM T [facility] BUN 19 8 - 23 mg/dL 07/31/2023 3:40 AM T [facility] CREATININE 1.59(H) 0.70 - 1.20 mg/dL 07/31/2023 3:40 AM [facility] BUN/CREAT RATIO 12 10 - 20 3:40 AM T [facility] eGFR 48(L) >90 mL/min/1.7 3m2 07/31/2023 3:40 AM T [facility] Comment:As of 2021, eG FR is calculated by the CKD-EPI creatinine equation without race adjustment. ??eGFR can be influenced by muscle mass, exercise, and diet. ??The reported eGFR is an estimation only and is only applicable if the renal function is stable. Blood BLOOD SPECIMEN / Unknown Venipuncture / Unknown 07/30/2023 1:52 PM CDT 07/30/2023 1:54 PM CDT Tien Mulligan MD CHEMISTRY Performing Organization Address [facility] Co de Phone Number [facility] [address] [place] [address], * PSA TOTAL SCREEN - Dx Auto-associated (07/30/2023 1:52 PM CDT) PSA TOTAL (SCREEN) 2.94 <4.00 ng/mL 07/31/2023 3:40 AM CDT [facility] Blood BLOOD SPECIMEN / Unknown Venipuncture / Unknown 07/30/2023 1:52 PM CDT 07/30/2023 1:54 PM CDT Narrative [facility] - 07/31/2023 3:40 AM CDT The test method changed on 08/28/2022. If this test has been used for serial monitoring, rebaselining is recommended. Rebaselining consists of 2 measurements, collected 3-6 weeks apart. The [employer] Ele[employer]ys total PSA assay is an electrochemiluminescence immunoassay ECLIA performed on the Becca Jessica e immunoassay analyzers. Values obtained with different assay methods may be different and cannot be used interchangeably. Tien Mulligan MD LABORATORY Performing Organization Address [facility] de Phone Number [facility] [address] [place] [address], * ANTI HCV (11/02/2019 2:00 PM CDT) HEPATITIS C ANTIBODY Non-React estela Non-React estela 11/02/2019 8:41 PM CDT [facility] Arrively [facility] TRAL LABORATORY Comment:Antibodies to HCV no t detected; does not exclude the possibility of exposure to HCV. Blood BLOOD SPECIMEN / Unknown Venipuncture / Unknown 11/02/2019 2:00 PM CDT 11/02/2019 2:00 PM CDT Tien Mulligan MD SEND OUTS Performing Organization Address [facility] Co de Phone Number [facility] [address] [place] [address], * COLONOSCOPY SCREENING (02/03/2019 8:53 AM FIELD INVESTIGATOR) Tien Mulligan MD GI PROCEDURE ORD from Last 3 Months or Most Recently Relevant to Health Maintenance Additional Health Concerns Infection Onset Date Last Indicated MRSA Clearance Comment:Infection Control Note: Hx of MRSA, surveillance criteria met, no need for further testing or isolation precautions. Do not delete or resolve the Infection Flag. +MRSA 03/14/16 L armpit 03/15/2022 03/15/2022 Advance Directives * Full Code (Latest Code Status on File) Date Activated Date Inactivated Comments 08/02/2016 12:45 PM 08/02/2016 9:33 PM * Full Code Date Activated Date Inactivated Comments 01/19/2016 4:28 PM 01/20/2016 8:28 PM * Full Code Date Activated Date Inactivated Comments 01/19/2016 3:03 PM 01/19/2016 4:28 PM Care Teams Case Mgr Relationship Specialty Start Date End Date [place] [address] PCP - General 10/02/06
--- NOTE | 2023-10-01 14:30 | CRLHL7_ITS ---
For Patients: As a result of the Century Cures Act, medical imaging exams and procedure reports are released immediately into your electronic medical record. You may view this report before your referring provider. If you have questions, please contact your health care provider. INDICATION: Right leg pain. Back pain. TECHNIQUE: Sagittal and axial T1 weighted images with and without gadolinium contrast, sagittal axial T2 and sagittal STIR images were obtained. 20 cc of node or M contrast utilized. COMPARISON: Previous MRI dated 03/15/2022. FINDINGS: Sagittal alignment of the lumbar spine within normal limits. No compression fractures distal cord and conus medullaris appear normal the conus terminates normally at L1. No disc herniation or stenosis at T11-12, T12-L1 or L1-2 levels. At L2-3 evidence of a right hemilaminotomy and excision of lateral disc protrusion there is enhancing granulation/scar tissue in the right L2 neural foramina adjacent to the right exiting L2 nerve root where a previously noted disc protrusion head and there is no central canal stenosis or lateral recess narrowing. Small incidental osseous hemangioma at the superior aspect of L3 has doubtful significance and is unchanged. At L3-4 postop changes consistent with interval resection of disc protrusion from the right L3 nerve root canal. There is enhancing granulation/scar tissue in the posterolateral disc anulus and adjacent right L3 nerve root canal. Small left foraminal disc bulge/protrusion below the exiting left L3 nerve root. No central stenosis. At L4-5 mild annular bulge and mild facet enlargement previously noted central disc protrusion has largely resolved. At L5-S1 degenerative disc desiccation. Minor annular bulge smaller than on the prior scan without stenosis of the spinal canal or neural foramen. IMPRESSION: 1. Compared to prior MRI, there has been interval surgery with the resection of right L2 and right L3 lateral/foraminal disc protrusions. No postop fluid collections or evidence of discitis/osteomyelitis. 2. At L2-3 enhancing granulation/scar tissue within the right L2 nerve root canal. 3. At L3-4 enhancing granulation/scar tissue in the right L3 nerve root canal. Small disc protrusion/bulge involves the left neural foramina below the exiting left L3 nerve root. 4. Minor disc bulging at L4-5 and L5-S1 has improved since the prior scan. Dictated by Buddy Jama MD @ 10/04/2023 8:02:51 AM (Electronically Signed)
== END 2023-10-01 14:02 | disposition home or self-care (01) ==
PROVIDERS: PCP Family Medicine; Visit Provider Family Medicine
DX: M79.604 Pain in right leg (principal); M51.26 Other intervertebral disc displacement, lumbar region; M54.16 Radiculopathy, lumbar region; M51.36 Other intervertebral disc degeneration, lumbar region; Z98.890 Other specified postprocedural states
CPT/HCPCS: 72158; A9575

== ENCOUNTER 2023-10-29 07:23 | Outpatient (CLI) | payer MEDICARE, SELFPAY ==
--- OUTSIDE RECORDS SUMMARY | 2023-10-29 07:26 | XMS_ITS | Data Portability ---
Author Organization [place] [facility] Address [address] [place] [address] Assessment No assessment recorded. Plan of Treatment Reminders Order Date Submit Date Provider Last Modified By Organization Details Last Modified Time Details Appointments None record ed. Lab PSA, total, serum or plasma 2023 024 [email or web address] [facility], [address], [place], [address], 4 09:35:27 urinal ysis, dipsti ck 2023 024 [email or web address] [facility], [address], [place], [address], 4 12:23:12 PSA, serum or plasma 2023 024 [email or web address] o [facility], [address], [place], [address], 4 12:12:28 Referral None record ed. Procedures None record ed. Surgeries None record ed. Imaging CT, abdome n + pelvis , w/o contra st - PLEASE CALL PT TO SCHEDU LE 2023 024 [email or web address] o [facility], [address], [place], [address], 4 11:56:18 MRI, prosta te, w/wo contra st - PLEASE CALL PT TO SCHEDU LE 2023 024 [email or web address] [facility], [address], [address], [place], [address], 23:10:45 Medication Orders None record ed. Patient TargetsNo targets recorded. Patient InstructionsNo instructions recorded. Reason for Referral None Reported. Results Created Date Observation Date Name Description Value Unit Range Abnormal Flag Note LastModifiedBy Organization Detail LastModifiedTime 08/26/19 24 08/26/2023 urina lysis , dipst ick BLOOD Trace (5 RBC/uL ) Not Available [facility] [address], [place], [address], 08/26/2023 12:06:39 08/26/19 24 08/26/2023 urina lysis , dipst ick BILIRUBIN Negati ve Not Available [facility] [address], [place], [address], 08/26/2023 12:06:39 08/26/19 24 08/26/2023 urina lysis , dipst ick UROBILINOGEN 0.2 mg/dL (Norm) Not Available [facility] [address], [place], [address], 08/26/2023 12:06:39 08/26/19 24 08/26/2023 urina lysis , dipst ick KETONES Negati ve Not Available [facility] [address], [place], [address], 08/26/2023 12:06:39 08/26/19 24 08/26/2023 urina lysis , dipst ick PROTEIN Negati ve Not Available [facility] [address], [place], [address], 08/26/2023 12:06:39 08/26/19 24 08/26/2023 urina lysis , dipst ick NITRITES Negati ve Not Available [facility] [address], [place], [address], 08/26/2023 12:06:39 08/26/19 24 08/26/2023 urina lysis , dipst ick GLUCOSE Negati ve Not Available [facility] [address], [place], [address], 08/26/2023 12:06:39 08/26/19 24 08/26/2023 urina lysis , dipst ick p.H. 5.0 Not Available [facility] [address], [place], [address], 08/26/2023 12:06:39 08/26/19 24 08/26/2023 urina lysis , dipst ick S.G. (Specific [place]) 1.020 Not Available [facility] [address], [place], [address], 08/26/2023 12:06:39 08/26/19 24 08/26/2023 urina lysis , dipst ick LEUKOCYTES Negati ve Not Available [facility] [address], [place], [address], 08/26/2023 12:06:39 10/28/19 24 10/28/2023 PSA, serum or plasm a PSA 3.7 ng/ml 0-4.0 NG/mL Not Available [facility] [address], [place], [address], 10/28/2023 12:03:09 Result Notes None recorded. Procedures Surgical History Date Name Laterality Status Provider Name and Address Organization Details Recorded Time 4 Bladder Scan completed Guillermo Sparks MD [address], [place], [address], [facility] 10/28/2023 12:03:04 4 Bladder Scan completed Abi juarez [facility] 08/26/2023 12:06:16 3 discectomy of spine completed Abi juarez [facility] 08/26/2023 12:05:09 Imaging Results None recorded. Procedure Notes None recorded. Medical Equipment None Reported. Allergies Allergen ID Allergen Name Allergen Category Reaction Reaction Severity Criticality Documentation Date Start Date Code Code System Note Provider Name and Address Organization Details Recorded Time 157999 codeine medicatio n Not available Not available Not available 08/20/20192016 2670 RxNorm Not Available [facility] 0 00:42:13 [id number] Toradol medicatio n Not available Not available Not available 08/20/20192016 02954 RxNorm Not Available [facility] 0 00:42:13 577352 morphine medicatio n Not available Not available Not available 08/26/2023 7052 RxNorm Abi juarez [facility] 4 12:03:10 Medications Name Sig Start Date Stop Date Status Note LastModified by Organization Details LastModified Time prednisone 10 mg tablet take 2 tablets by mouth twice daily with meals for 3 days, then 1 tablet three times daily for 3 days, then 2 tablets once daily for 3 days, then 1 tablet daily for 3 days.* 10/27 completed Not Available Not Available Not Available methocarbam ol 750 mg tablet TAKE ONE TABLET BY MOUTH FOUR TIMES DAILY NEEDED* active Not Available Not Available No t Available gabapentin 300 mg capsule TAKE TWO CAPSULES BY MOUTH THREE TIMES DAILY* active Not Available Not Available No t Available hydrochloro thiazide 25 mg tablet TAKE ONE TABLET BY MOUTH ONE TIME DAILY* active Not Available Not Available No t Available alfuzosin ER 10 mg tablet,exte nded release 24 hr TAKE ONE TABLET BY MOUTH ONE TIME DAILY WITH A MEAL.* active Not Available Not Available No t Available Probiotic 10/27 completed Not Available Not Available Not Available Xarelto 10 mg tablet TAKE ONE TABLET BY MOUTH ONE TIME DAILY WITH EVENING MEAL.* active Not Available Not Available No t Available Vitals Date Recorded Body height Body mass index (BMI) Body weight Provider Name and Address Organization Details Last Updated DateTime 08/26/2023 177.8 cm 35.2 kg/m2 488953.13 g Abi Almeida [facility] 08/26/2023 12:02:44 Date Recorded Body height Body mass index (BMI) Body weight Provider Name and Address Organization Details Last Updated DateTime 10/28/2023 177.8 cm 35.2 kg/m2 268631.13 g Guillermo Sparks MD [address],[facility] [address], [place], [address], [facility] 10/28/2023 12:02:15 Social History Question Answer Notes LastModified by Organizat ion Details LastModified Time Tobacco Smoking Status Never Smoker Abi juarez [facility] 08/26/2023 12:04:34 What Is Your Level Of Alcohol Consumption? Occasional [email or web address] Information not available 08/26/2023 What Is Your Level Of Caffeine Consumption? Moderate [email or web address] Information not available 08/26/2023 Race White [email or web address] Information not available 08/26/2023 Ethnicity Not / [email or web address] Information not available 08/26/2023 Preferred Language Salvadorean [email or web address] Information not available 08/26/2023 What Was The Date Of Your Most Recent Tobacco Screening? 10/28/2023 [email or web address] Information not available 10/28/2023 Sex: Unknown Functional Status None recorded. Mental [...] Time Influenza, split virus, quadrivalent, preservative 11/29/2015 rashad juarez [facility] 08/26/2023 12:02:53 Influenza, MDCK, quadrivalent, PF 12/17/2016 rashad juarez [facility] 08/26/2023 12:02:53 zoster recombinant 04/27/2019 rashad juarez [facility] 08/26/2023 12:02:53 zoster recombinant 02/16/2019 rashad juarez [facility] 08/26/2023 12:02:53 COVID-19, mRNA, LNP-S, PF, 30 mcg/0.3 mL dose 05/17/2020 completed Abi Almeida null, [facility] 08/26/2023 12:02:53 COVID-19, mRNA, LNP-S, PF, 30 mcg/0.3 mL dose 06/07/2020 completed Abi Almeida null, [facility] 08/26/2023 12:02:53 COVID-19, mRNA, LNP-S, PF, 30 mcg/0.3 mL dose 02/07/2021 completed Abi Almeida null, [facility] 08/26/2023 12:02:53 Pneumococcal conjugate PCV20, polysaccharide SYO550 conjugate, adjuvant, PF 07/30/2023 completed Abi Almeida null, [facility] 08/26/2023 12:02:53 COVID-19, mRNA, LNP-S, bivalent, PF, 30 mcg/0.3 mL dose 11/15/2021 completed Abi Almeida null, [facility] 08/26/2023 12:02:53 Tdap 02/16/2019 [facility] 12:02:53 Influenza, split virus, trivalent, preservative 12/07/2008 completed Abi Almeida null, [facility] 08/26/2023 12:02:53 Influenza, split virus, trivalent, preservative 01/03/2010 completed Abi Almeida null, [facility] 08/26/2023 12:02:53 Influenza, split virus, trivalent, preservative 01/06/2008 completed Abi Almeida null, [facility] 08/26/2023 12:02:53 Influenza, split virus, trivalent, preservative 01/28/2012 completed Abi Almeida null, [facility] 08/26/2023 12:02:53 Influenza, split virus, quadrivalent, PF 11/20/2022 completed Abi Almeida null, [facility] 08/26/2023 12:02:53 Influenza, split virus, quadrivalent, PF 12/02/2017 completed Abi Almeida null, [facility] 08/26/2023 12:02:53 Influenza, split virus, quadrivalent, PF 12/08/2018 completed Abi Almeida null, [facility] 08/26/2023 12:02:53 Influenza, split virus, quadrivalent, PF 12/12/2020 completed Abi Almeida null, [facility] 08/26/2023 12:02:54 Influenza, split virus, quadrivalent, PF 12/21/2019 completed Abi Almeida null, [facility] 08/26/2023 12:02:54 Influenza, split virus, quadrivalent, PF 12/20/2021 completed Abi Almeida null, [facility] 08/26/2023 12:02:54 Past Encounters Encounter ID Performer Location Encounter Start Date Encounter Closed Date Diagnosis/Indication Diagnosis SNOMED-CT Code [id number] MD ELI [facility] [address] [place] [address] 08/26/2023 11:29:53 08/27/2023 15:17:25 Lower urinary tract symptoms due to benign prostatic hypertrophy 52471271582477 Kidney stone 31880621 Prostate s pecific antigen above reference range 613777036 [id number] MD [facility]I [facility] [address] [place] [address] 10/28/2023 11:46:53 10/28/2023 13:45:19 Prostate specific antigen above reference range 423885146 Lower urin audra tract symptoms due to benign prostatic hypertrophy 80634310620401 Kidney stone 52917041 Health Concerns Section Related Observation LastModified by Organization Detai ls LastModified Time None Recorded Concern Status LastModified by Organization Details LastModified Time None Recorded Advance Directives Directive None Recorded Payers Encounter Date Sequence Insurance Name Policy Number Policy Nobles Covered Member ID Nobles Member ID Guarantor Name 08/26/2023 1 [place] [id number] Dusty Quiroga [id number] Dusty Quiroga 10/28/2023 1 [place] [id number] Dusty Quiroga [id number] Dusty Quiroga Notes Date Note Type Note [...] PTH = 80.4 (11/10/13). Guillermo Sparks MD [address] [place] [address],[address], [place], [address], [facility] 08/26/2023 23:11:47 10/28/2023 text/html HPI Notes: 63 yo male with [...] 0x/night. He reports hesitancy and slow stream. 10/28/23 - He presents for follow-up on kidney stones, PSA, and urination. He denies abdominal or flank pain. He voids every 3-4 hours during the day and 0x/night. - PSA - 3.7 ng/ml - PVR = 0 ml - CT scan (09/06/23) - Right - 5 (1 mm) stones - Left - 2 mm (upper pole) - 1 mm (mid-kidney) - + parapelvic cyst PSA - 0.59 (11/10/13) - 0.79 (09/27/14) - 0.78 (10/31/15) - 1.06 (08/05/17) - 1.42 (08/04/18) - 1.37 (12/08/18) - 1.60 (11/02/19) - 2.40 (06/27/20) - 2.02 (09/26/20) - 2.94 (07/30/23) - 3.7 (10/28/23) CT scan (08/05/17) - Right - no stones - Left - 2 mm stone (lower pole) - + parapelvic cyst CT scan (08/04/18) - No stones in either kidney - Left parapelvic cyst CT scan (09/06/23) - Right - 5 (1 mm) stones - Left - 2 mm (upper pole) - 1 mm (mid-kidney) - + parapelvic cyst 24 Hr urine (10/20/13) revealed high Calcium (308 mg), high Sodium (253 mg), and high Phosphorous (1.245) - good urine volume (3.76 L) and good Citrate (679 mg). PTH = 80.4 (11/10/13). Guillermo Sparks MD [address], [place], [address], [facility] 10/28/2023 13:45:17
--- OUTSIDE RECORDS SUMMARY | 2023-10-29 07:26 | XMS_ITS | Continuity of Care Document ---
Author Organization [place] [facility] Address [address] [place] [address] Assessment No assessment recorded. Plan of Treatment Reminders Order Date Submit Date Provider Last Modified By Organization Details Last Modified Time Details Appointments None record ed. Lab PSA, total, serum or plasma [email or web address] [facility], [address], [place], [address], 4 09:35:27 urinal ysis, dipsti ck 2023 024 [email or web address] [facility], [address], [place], [address], 4 12:23:12 Referral None record ed. Procedures None record ed. Surgeries None record ed. Imaging CT, abdome n + pelvis , w/o contra st - PLEASE CALL PT TO SCHEDU LE 2023 0[email or web address] [facility], [address] [place], [address], 4 11:56:18 Medication Orders None record ed. Patient TargetsNo targets recorded. Patient InstructionsNo instructions recorded. Reason for Referral None Reported. Results Created Date Observation Date Name Description Value Unit Range Abnormal Flag Note LastModifiedBy Organization Detail LastModifiedTime 08/26/19 24 08/26/2023 urina lysis , dipst ick BLOOD Trace (5 RBC/uL ) Not Available [facility] [address], [place], [address], 08/26/2023 12:06:39 08/26/19 24 08/26/2023 urina lysis , dipst ick BILIRUBIN Negati ve Not Available [facility] [address], [place], [address], 08/26/2023 12:06:39 08/26/19 24 08/26/2023 urina lysis , dipst ick UROBILINOGEN 0.2 mg/dL (Norm) Not Available [facility] [address], [place], [address], 08/26/2023 12:06:39 08/26/19 24 08/26/2023 urina lysis , dipst ick KETONES Negati ve Not Available [facility] [address], [place], [address], 08/26/2023 12:06:39 08/26/19 24 08/26/2023 urina lysis , dipst ick PROTEIN Negati ve Not Available [facility] [address], [place], [address], 08/26/2023 12:06:39 08/26/19 24 08/26/2023 urina lysis , dipst ick NITRITES Negati ve Not Available [facility] [address], [place], [address], 08/26/2023 12:06:39 08/26/19 24 08/26/2023 urina lysis , dipst ick GLUCOSE Negati ve Not Available [facility] [address], [place], [address], 08/26/2023 12:06:39 08/26/19 24 08/26/2023 urina lysis , dipst ick p.H. 5.0 Not Available [facility] [address], [place], [address], 08/26/2023 12:06:39 08/26/19 24 08/26/2023 urina lysis , dipst ick S.G. (Specific [place]) 1.020 Not Available [facility] [address], [place], [address], 08/26/2023 12:06:39 08/26/19 24 08/26/2023 urina lysis , dipst ick LEUKOCYTES Negati ve Not Available [facility] [address], [place], [address], 08/26/2023 12:06:39 Result Notes None recorded. Procedures Surgical History Date Name Laterality Status Provider Name and Address Organization Details Recorded Time 4 Bladder Scan completed Guillermo Sparks MD [address] [place], [place] [address], [place], [address] 10/28/2023 12:03:04 4 Bladder Scan completed Abi juarez [facility] 08/26/2023 12:06:16 3 discectomy of spine completed Abi juarez [facility] 08/26/2023 12:05:09 Imaging Results None recorded. Procedure Notes None recorded. Medical Equipment None Reported. Allergies Allergen ID Allergen Name Allergen Category Reaction Reaction Severity Criticality Documentation Date Start Date Code Code System Note Provider Name and Address Organization Details Recorded Time 686073 codeine medicatio n Not available Not available Not available 08/20/20192016 2670 RxNorm Not Available [facility] 0 00:42:13 608693 Toradol medicatio n Not available Not available Not available 08/20/20192016 22349 RxNorm Not Available [facility] 0 00:42:13 532893 morphine medicatio n Not available Not available Not available 08/26/2023 7052 RxNorm Abi juarez [facility] 4 12:03:10 Medications Name Sig [...] Updated DateTime 08/26/2023 177.8 cm 35.2 kg/m2 616310.13 g Abi Almeida [facility] 08/26/2023 12:02:44 Social History Question Answer Notes LastModified by Organizat ion Details LastModified Time Tobacco Smoking Status Never Smoker Abi Almeida [facility] 08/26/2023 12:04:34 What Is Your Level Of Alcohol Consumption? Occasional [email or web address] Information not available 08/26/2023 What Is Your Level Of Caffeine Consumption? Moderate [email or web address] Information not available 08/26/2023 Race White [email or web address] Information not available 08/26/2023 Ethnicity Not / [email or web address] Information not available 08/26/2023 Preferred Language Malawian [email or web address] Information not available 08/26/2023 What Was The Date Of Your Most Recent Tobacco Screening? 10/28/2023 [email or web address] Information not available 10/28/2023 Sex: Unknown Functional Status None recorded. Mental Status None recorded. Family History Relationship Description Onset Age of this Age Resolved Age Notes Sister Family history of br east cancer Sister Family history of ca ncer of colon Medical History Condition Response Diabetes N Bleeding Disorder N Other High Blood Pressure Y Kidney Stones Y Cancer N Lung Disease N Depression N High Cholesterol N GERD/Acid Reflux N Heart Disease N Immunizations Vaccine Type Date Status Provider Name and Address Organization Details Recorded Time Influenza, split virus, quadrivalent, preservative 11/29/2015 [facility] 12:02:53 Influenza, MDCK, quadrivalent, PF 12/17/2016 [facility]2023 12:02:53 zoster recombinant 04/27/2019 [facility] 08/26/2023 12:02:53 zoster recombinant 02/16/2019 [facility] 08/26/2023 12:02:53 COVID-19, mRNA, LNP-S, PF, 30 mcg/0.3 mL dose 05/17/2020 [facility] 08/26/2023 12:02:53 COVID-19, mRNA, LNP-S, PF, 30 mcg/0.3 mL dose 06/07/2020 [facility] 08/26/2023 12:02:53 COVID-19, mRNA, LNP-S, PF, 30 mcg/0.3 mL dose 02/07/2021 [facility] 08/26/2023 12:02:53 Pneumococcal conjugate PCV20, polysaccharide [id number] conjugate, adjuvant, PF 07/30/2023 [facility] 08/26/2023 12:02:53 COVID-19, mRNA, LNP-S, bivalent, PF, 30 mcg/0.3 mL dose 11/15/2021 [facility] 08/26/2023 12:02:53 Tdap 02/16/2019 [facility] 08/26/2023 12:02:53 Influenza, split virus, trivalent, preservative 12/07/2008 [facility]/26/2023 12:02:53 Influenza, split virus, trivalent, preservative 01/03/2010 completed Abi Almeida null, [facility] 08/26/2023 12:02:53 Influenza, split virus, trivalent, preservative 01/06/2008 completed Abimeliza Tatumon null, [facility] 08/26/2023 12:02:53 Influenza, split virus, trivalent, preservative 01/28/2012 completed Abi Almeida null, [facility] 08/26/2023 12:02:53 Influenza, split virus, quadrivalent, PF 11/20/2022 completed Abi Almeida null, [facility] 08/26/2023 12:02:53 Influenza, split virus, quadrivalent, PF 12/02/2017 completed Abi Almeida null, [facility] 08/26/2023 12:02:53 Influenza, split virus, quadrivalent, PF 12/08/2018 completed Abi Almeida null, [facility] 08/26/2023 12:02:53 Influenza, split virus, quadrivalent, 12/12/2020 completed Abi Almeida null, [facility] 08/26/2023 12:02:54 Influenza, split virus, quadrivalent, 12/21/2019 completed Abi Almeida null, [facility] 08/26/2023 12:02:54 Influenza, split virus, quadrivalent, 12/20/2021 completed Abi Almeida null, [facility] 08/26/2023 12:02:54 Past Encounters Encounter ID Performer Location Encounter Start Date Encounter Closed Date Diagnosis/Indication Diagnosis SNOMED-CT Code [id number] Guillermo Sparks MD [facility] [address] [address] 08/26/2023 11:29:53 08/27/2023 15:17:25 Lower urinary tract symptoms due to benign prostatic hypertrophy 72596041387206 Kidney stone 30031472 Prostate s pecific antigen above reference range 135615098 Health Concerns Section Related Observation LastModified by Organization Detai ls LastModified Time None Recorded Concern Status LastModified by Organization Details LastModified Time None Recorded Payers Encounter Date Sequence Insurance Name Policy Number Policy Nobles Covered Member ID Nobles Member ID Guarantor Name 08/26/2023 1 [employer] - MEDICARE COST [id number] Dusty Quiroga [id number] Dusty Quiroga Notes Date Note Type Note [...] PTH = 80.4 (11/10/13). Guillermo Sparks MD [address], [place], [address], [facility] 08/26/2023 23:11:47
--- OUTSIDE RECORDS SUMMARY | 2023-10-29 07:26 | XMS_ITS | Continuity of Care Document ---
Author Organization [place] - [facility] Address [address] [place] [address] Assessment No assessment recorded. Plan of Treatment Reminders Order Date Submit Date Provider Last Modified By Organization Details Last Modified Time Details Appointments None record ed. Lab PSA, serum or plasma 2023 024 [email or web address] o [facility], [address], [place], [address], 12:12:28 Referral None record ed. Procedures None record ed. Surgeries None record ed. Imaging MRI, prosta te, w/wo contra st - PLEASE CALL PT TO NORYU RADHA 2023 024 [email or web address] [facility], [address], [facility] [address], [place], [address], 23:10:45 Medication Orders None record ed. Patient TargetsNo targets recorded. Patient InstructionsNo instructions recorded. Reason for Referral None Reported. Results Created Date Observation Date Name Description Value Unit Range Abnormal Flag Note LastModifiedBy Organization Detail LastModifiedTime 10/28/1910/28/2023 PSA, serum or plasm a PSA 3.7 ng/ml 0-4.0 NG/mL Not Available [facility] [address], [place], [address], 10/28/2023 12:03:09 Result Notes None recorded. Procedures Surgical History Date Name Laterality Status Provider Name and Address Organization Details Recorded Time 08/26/202 4 Bladder Scan completed Guillermo Sparks MD [address], [place], [address], [facility] 10/28/2023 12:03:04 4 Bladder Scan completed Abi juarez [facility] 08/26/2023 12:06:16 3 discectomy of spine completed Abi juarez [facility] 08/26/2023 12:05:09 Imaging Results None recorded. Procedure Notes None recorded. Medical Equipment None Reported. Allergies Allergen ID Allergen Name Allergen Category Reaction Reaction Severity Criticality Documentation Date Start Date Code Code System Note Provider Name and Address Organization Details Recorded Time 194703 codeine medicatio n Not available Not available Not available 08/20/20192016 2670 RxNorm Not Available [facility] 0 00:42:13 685453 Toradol medicatio n Not available Not available Not available 08/20/20192016 15368 RxNorm Not Available [facility] 0 00:42:13 489286 morphine medicatio n Not available Not available Not available 08/26/2023 7052 RxNorm Abi juarez [facility] 4 12:03:10 Medications Name Sig [...] Updated DateTime 10/28/2023 177.8 cm 35.2 kg/m2 113856.13 g Guillermo Sparks MD [address],[facility] [address], [place], [address], [facility] 10/28/2023 12:02:15 Social History Question Answer Notes LastModified by Organizat ion Details LastModified Time Tobacco Smoking Status Never Smoker Abi juarez [facility] 08/26/2023 12:04:34 What Is Your Level Of Alcohol Consumption? Occasional Information not available 08/26/2023 What Is Your Level Of Caffeine Consumption? Moderate [email or web address] Information not available 08/26/2023 Race White [email or web address] Information not available 08/26/2023 Ethnicity Not / [email or web address] Information not available 08/26/2023 Preferred Language Romanian [email or web address] Information not available 08/26/2023 What Was The [...] virus, quadrivalent, preservative 11/29/2015 completed Abi juarez [facility] 08/26/2023 12:02:53 Influenza, MDCK, quadrivalent, PF 12/17/2016 completed Abi juarez [facility] 08/26/2023 12:02:53 zoster recombinant 04/27/2019 completed Abi juarez [facility] 08/26/2023 12:02:53 zoster recombinant 02/16/2019 completed Abi juarez [facility] 08/26/2023 12:02:53 COVID-19, mRNA, LNP-S, PF, 30 mcg/0.3 mL dose 05/17/2020 completed Abi Almeida null, [facility] 08/26/2023 12:02:53 COVID-19, mRNA, LNP-S, PF, 30 mcg/0.3 mL dose 06/07/2020 completed Abi Almeida null, [facility] 08/26/2023 12:02:53 COVID-19, mRNA, LNP-S, PF, 30 mcg/0.3 mL dose 02/07/2021 completed Abi Almeida null, [facility] 08/26/2023 12:02:53 Pneumococcal conjugate PCV20, polysaccharide [id number] conjugate, adjuvant, PF 07/30/2023 completed Abi Almeida null, [facility] 08/26/2023 12:02:53 COVID-19, mRNA, LNP-S, bivalent, PF, 30 mcg/0.3 mL dose 11/15/2021 completed Abi Almeida null, [facility] 08/26/2023 12:02:53 Tdap 02/16/2019 [facility] 12:02:53 Influenza, split virus, trivalent, preservative 12/07/2008 completed Abi Almeida null, [facility] 08/26/2023 12:02:53 Influenza, split virus, trivalent, preservative 01/03/2010 completed Abi Almeida null, [facility] 08/26/2023 12:02:53 Influenza, split virus, trivalent, preservative 01/06/2008 completed Abi Almeida null, [facility] 08/26/2023 12:02:53 Influenza, split virus, trivalent, preservative 01/28/2012 completed Abi Almeida null, [facility] 08/26/2023 12:02:53 Influenza, split virus, quadrivalent, PF 11/20/2022 completed Abi Almeida null, [facility] 08/26/2023 12:02:53 Influenza, split virus, quadrivalent, PF 12/02/2017 completed Abi Almeida null, [facility] 08/26/2023 12:02:53 Influenza, split virus, quadrivalent, PF 12/08/2018 completed Abimeliza Almeida null, [facility] 08/26/2023 12:02:53 Influenza, split virus, quadrivalent, PF 12/12/2020 completed Abi Almeida null, [facility] 08/26/2023 12:02:54 Influenza, split virus, quadrivalent, PF 12/21/2019 completed Abi Almeida null, [facility] 08/26/2023 12:02:54 Influenza, split virus, quadrivalent, PF 12/20/2021 completed Abimeliza Almeida null, [facility] 08/26/2023 12:02:54 Past Encounters Encounter ID Performer Location Encounter Start Date Encounter Closed Date Diagnosis/Indication Diagnosis SNOMED-CT Code [id number] Guillermo Sparks MD [facility] [address] [place] [address] 10/28/2023 11:46:53 10/28/2023 13:45:19 Prostate specific antigen above reference range 173426400 Lower urin audra tract symptoms due to benign prostatic hypertrophy [id number] Kidney stone 52587894 Health Concerns Section Related Observation LastModified by Organization Detai ls LastModified Time None Recorded Concern Status LastModified by Organization Details LastModified Time None Recorded Payers Encounter Date Sequence Insurance Name Policy Number Policy Nobles Covered Member ID Nobles Member ID Guarantor Name 10/28/2023 1 [facility]: [place] [facility] [place] [employer] - MEDICARE COST [id number] Dusty Quiroga [id number] Dusty Quiroga Notes Date Note Type Note Provider Name and Address Organization Details Recorded Time 10/28/2023 text/html HPI Notes: 63 yo male [...] PTH = 80.4 (11/10/13). Guillermo Sparks MD [address], [place], [address], [facility] 10/28/2023 13:45:17
--- OUTSIDE RECORDS SUMMARY | 2023-10-29 07:26 | XMS_ITS | Clinical Summary ---
Author Organization [facility] Address [place], [place] [address] Care Team Providers Care Electrician [employer]inery Name Role Phone Tien Mulligan MD Primary Care Provider [phone] Allergies Active Allergy Reactions Criticality Noted Date Comments Codeine Hives 10/02/2006 Morphine Hives 10/02/2006 Ketorolac Renal Failure 08/17/2013 Medications Medication Sig Dispensed Refills Start Date End Date Status lactobacillus 300 - acidophilus 250 (PROBIOTIC AND ACIDOPHILUS) cap Take 1 Capsule by mouth once daily. 0 06/05/2011 Active medical supply, miscellaneous (GRADUATED COMPRESSION STOCKINGS)Indicati ons:Deep vein thrombosis (DVT) of both lower extremities, unspecified chronicity, unspecified vein (HC) 20-30 mm/Hg thigh high compression stockings - Venous insufficiency 6 Packet 01/11/2020 Active rivaroxaban (Xarelto) 10 mg tabletIndications: Deep vein thrombosis (DVT) of both lower extremities, unspecified chronicity, unspecified vein (HC) Take 1 Tablet (10 mg) by mouth once daily with evening meal. 90 Tablet 3 07/30/2023 Active hydroCHLOROthiazid e 25 mg tabletIndications: Essential hypertension Take 1 Tablet (25 mg) by mouth once daily. 90 Tablet 3 07/30/2023 Active alfuzosin (UROXATRAL) 10 mg Sustained-Release tabletIndications: Benign non-nodular prostatic hyperplasia without lower urinary tract symptoms TAKE 1 TABLET BY MOUTH DAILY WITH A MEAL 90 Tablet 3 07/30/2023 Active gabapentin (NEURONTIN) 300 mg capsuleIndications :Lumbar radiculopathy Take 2 Capsules (600 mg) by mouth three times daily. 540 Capsule 3 07/30/2023 Active methocarbamoL (ROBAXIN) 750 mg tabletIndications: Muscle spasm,Racing heart beat Take 1 Tablet (750 mg) by mouth 3 times daily if needed for Muscle Spasm. Wait until they call for this. 60 Tablet 1 07/30/2023 Active predniSONE (DELTASONE) 10 mg tabletIndications: Right leg pain,Lumbar radiculopathy,Hist ory of lumbar laminectomy for spinal cord decompression,Bulg e of lumbar disc without myelopathy Take 2 Tablets (20 mg) by mouth two times daily with meals for 3 days, THEN 1 Tablet (10 mg) three times daily with meals for 3 days, THEN 2 Tablets (20 mg) once daily with a meal for 3 days, THEN 1 Tablet (10 mg) once daily with a meal for 3 days. 30 Tablet 09/25/2023 Active Problems Problem Noted Date Diagnosed Date Herniated nucleus pulposus, L3-4 03/20/2022 Nonrheumatic aortic valve insufficiency 03/15/19 Overview: Mild. Present on 03/15/22 echocardiogram. Repeat echo recommended in 3-5 years or sooner if symptomatic. Status post laparoscopic Kate fundoplication 0 03/14/2022 Vertigo 03/14/2022 Lumbar radiculopathy 11/22/2021 History of pulmonary embolism and right DVT 01/02 Overview: The following is from a vascular surgery consult with Dr. Russ at [facility]: I had a long discussion with the [...] Xarelto to 10 mg daily for the long term care pharmacist. Essential hypertension 12/02/2017 MRSA (methicillin resistant staph [...] Encounters Date Type Department Care Team Description 10/28/2023 Transcribe Orders [facility] Medical Imaging [address] [place] [address] Guillermo Sparks MD 10/14/2023 9:50 AM CDT Office Visit [facility] [address] [facility] [address] [place] [address] Lexis Galvez PA Derm Problem (Full body skin check ) 10/14/2023 Travel 10/10/2023 Telephone [facility] [address] [place] [address] James House MD Results 10/04/2023 Orders Only [facility] [address] [place] [address] James House MD 1 scan: (1-Ord) [facility], MR LUMBAR SPINE WO/W CON, 10/01/2023 09/25/2023 11:00 AM CDT Office Visit [facility] [address] [place] [address] James House MD Musculoskeletal Problem (Follow up back pain. Surgery 03/2022) 09/25/2023 Travel 09/06/2023 11:00 AM CDT Ancillary Procedure [facility] [address] [place] [address] 09/06/2023 Travel 08/26/2023 Transcribe Orders [facility] [address] [place] [address] Guillermo Sparks MD 08/01/2023 4:00 PM CDT Office Visit [address] Gifford [address] [place] [address] 07/30/2023 12:40 PM CDT Office Visit [facility] [address] [place] [address] Tien Mulligan MD Medicare WELCOME Visit (63 years); Immunization/Injection 07/30/2023 Travel from Last 3 Months Immunizations Name Administration Dates Next Due AMB Influenza, IIV3 (Age >=3 years)(Flu Clinic Only) 12/07/2008 AMB Influenza, IIV4 PF (=>6 mos Flulaval,Fluzone Fluarix)(Flu Clinic Only) 12/21/2019,12/08/2018,12/17/2016 Influenza, IIV3 (Age >=3 years) 01/28/2012,01/03,01/06/2008 Influenza, IIV4 11/20/2022, 2,12/12/2020,2017,11/28/2015 Pneumococcal Conj 20-valent (Prevnar 20) 07/30/2023 Td (Age >=7 Years) 05/11/2008,05/21/1993 Tdap 02/16/2019 Zoster (Shingrix-RZV, recombinant) 04/27/2019, Family History Medical History Relation Name Comments Heart Disease Father [place] at 87 and d ied shortly after [...] DT Respiratory Rate 14 03/20/2022 4:45 PM RESTAURANT KITCHEN AND SERVICE MANAGER Oxygen Saturation 96% 09/25/2023 11:01 AM CDT Inhaled Oxygen Concentration - - Weight 110.2 kg (243 lb) 09/25/2023 11:01 AM CDT shoes on Height 177.9 cm (5' 10.04) 07/30/2023 12:34 PM CDT Body Mass Index 34.83 07/30/2023 12:34 PM CDT Plan of Treatment Upcoming Encounters Date Type Department Care Team (Late st Contact Info) Description 10/29/2023 8:00 AM CDT Office Visit [facility] [address] [place] [address] James House MD [address] [place] [address] Health Maintenance Due Date Last Done Comments [...] Completed 4 Medical Devices Implanted Type Area Project Manager/Team Coach Device Identifier Shelf Expiration Date Model / Serial / Lot Stent Uret [id number] Contour - [id number] Implanted:Qty: 1 on 01/20/2016 by Paul Calderon MD at [facility] Left: Ureter [facility] [id number] / / [id number] Procedures Procedure Name Priority Date/Time Associated Diagnosis Comments PATH TISSUE EXAM Routine 10/14/2023 10:0 0 AM CDT Neoplasm of uncertain behavior of skin MR SPINE LUMBAR WWO Routine 10/01/2023 1 2:00 AM CDT Right leg pain Lumbar radiculopathy History of lumbar decompression surgery Bulge of lumbar disc without myelopathy CT ABDOMEN PELVIS STONE PROTOCOL WO Routine 09/06/2023 10:58 AM CDT Calculus of kidney EXTENDED HOLTER Routine 08/29/2023 Racing heart beat EKG 12 LEAD Routine 07/31/2023 8:58 AM CDT Racing heart beat Low blood pressure reading TX READING EKG - NO CHARGE, COMP ONLY [...] test COLONOSCOPY SCREENING Routine 02/03/2019 8:53 AM RESTAURANT KITCHEN AND SERVICE MANAGER History of colon polyps from Last 3 Months or Most Recently Relevant to Health Maintenance Results * PATH TISSUE EXAM (10/14/2023 10:00 AM CDT) Case Report Pathology Report ?Case: [id number] ? Authorizing Provider: ??Lexis Galvez ? Collected: ? 10/14/2023 1000 ? CAITLYN Savage ? Ordering Location: ? [facility] ?Received: ?10/14/2023 1604 ? Specialty Clinic ? Pathologist: ? Kamilah Kim, MD ? Specimens: ?? A) - Back, Right paraspinal T8 ? B) - Hand, Right 1st MCP ? 10/17/2023 10:37 AM CDT [facility] Final Diagnosis A) SKIN, RIGHT PARASPINAL T8, BIOPSY: 1. Arteriovenous hemangioma (cricoid aneurysm) 2. Negative for malignancy B) SKIN, RIGHT FIRST MCP, BIOPSY: 1. Arteriovenous hemangioma (cricoid aneurysm) 2. Negative for malignancy 10/17/2023 10:37 AM CDT [facility] LABORATORY-C ENTRAL LABORATORY Clinical Information Bella angioma, rule out other 10/17/2023 10:37 AM CDT [facility] ENTRAL LABORATORY Gross Description A) Received in formalin, labeled with the patient's name and right paraspinal T8, is a 0.8 x 0.5 x 0.2 cm skin biopsy. There is a 0.4 x 0.4 x 0.1 cm raised leyva lesion. The specimen is inked red, trisected and entirely submitted in one cassette. B) Received in formalin, labeled with the patient's name and right first MCP, is a 0.5 x 0.4 x 0.2 cm skin biopsy. There is a 0.4 x 0.4 x 0.1 cm raised blue-diego lesion. The specimen is inked yellow, trisected and entirely submitted in one cassette. TRS 10/15/2023 10/17/2023 10:37 AM CDT [facility]-C ENTRAL LABORATORY Microscopic Description The final diagnosis is based on microscopic examination of appropriate sections of all specimens. 10/17/2023 10:37 AM CDT [facility] LABORATORY-C ENTRAL LABORATORY Additional Information Interpreted at [facility], Central Laboratory - [address], [place] [address] 10/17/2023 10:37 AM CDT [facility]- ENTRAL LABORATORY Other SPECIMEN FROM UPPER LIMB / Unknown Non-Blood / Unknown 10/14/2023 10:00 AM CDT 10/14/2023 4:04 PM CDT Specimen (specimen) SPECIMEN FROM UPPER LIMB / Unknown 10/14/2023 10:00 AM CDT 10/14/2023 4:04 PM CDT Lexis BRADY PATHOLOGY/C YTOLOGY [facility] LABORATORY-CENTRAL LABORATORY [address] [place] [id number], [place] * MR SPINE LUMBAR WWO (10/01/2023 12:00 AM CDT) Anatomical Region Laterality Modality Spine, LUMBAR SPINE Magnetic Res onance James House MD MR * CT ABDOMEN PELVIS STONE PROTOCOL WO [...] CDT) Tien Mulligan MD EKG ORD * [place] READING EKG - NO CHARGE, COMP ONLY (07/31/2023 8:57 AM CDT) Tien Mulligan MD PB - PROVIDER READ INGS * CBC WITH AUTO DIFFERENTIAL (07/30/2023 1:52 PM CDT) [facility] WHITE BLOOD COUNT 8.4 4.5 - 11.0 thou/cu mm 07/30/2023 2:28 PM CDT [facility] RED BLOOD COUNT 4.83 4.30 - 5.90 mil/cu mm 07/30/2023 2:28 PM CDT [facility] HEMOGLOBIN 15.9 13.5 - 17.5 g/dL 07/30/2023 2:28 PM CDT [facility] HEMATOCRIT 44.7 37.0 - 53.0 % 07/30/2023 2:28 PM CDT [facility] MCV 93 80 - 100 fL 07/30/2023 2:28 PM CDT [facility] MCH 32.9 26.0 - 34.0 pg 07/30/2023 2:28 PM CDT [facility] MCHC 35.6 32.0 - 36.0 g/dL 07/30/2023 2:28 PM CDT [facility] RDW 12.4 11.5 - 15.5 % 07/30/2023 2:28 PM CDT [facility] PLATELET COUNT 169 140 - 440 thou/cu mm 07/30/2023 2:28 PM CDT [facility] MPV 9.6 6.5 - 11.0 fL 07/30/2023 2:28 PM CDT [facility] Blood BLOOD SPECIMEN / Unknown Venipuncture / Unknown 07/30/2023 1:52 PM CDT 07/30/2023 1:54 PM CDT Tine Mulligan MD HEMATOLOGY [facility] [address] [place] [address], [place] [phone] * RED CELL MORPHOLOGY (07/30/2023 1:52 PM CDT) RBC COMMENT RBC morphology appears normal RBC morphology appears normal, RBC morphology within normal limits for newborns. 07/30/2023 2:28 PM CDT [facility] Blood BLOOD SPECIMEN / Unknown Venipuncture / Unknown 07/30/2023 1:52 PM CDT 07/30/2023 1:54 PM CDT Tien Mulligan MD HEMATOLOGY Performing Organization Address City/[facility]/ZIP Co de Phone Number [facility] [address] [place] [address], * PLATELET ESTIMATE (07/30/2023 1:52 PM CDT) Pathologist [facility] PLATELET ESTIMATE Adequate Adequate, No estimate 07/30/2023 2:28 PM CDT [facility] Blood BLOOD SPECIMEN / Unknown Venipuncture / Unknown 07/30/2023 1:52 PM CDT 07/30/2023 1:54 PM CDT Tien Mulligan MD HEMATOLOGY Performing Organization Address [facility] Co de Phone Number [facility] [address] [place] [address], * TSH WITH REFLEX (07/30/2023 1:52 PM CDT) Pathologist [facility] TSH 0.96 0.27 - 4.20 uIU/mL 07/31/2023 3:40 AM CDT [facility] Blood BLOOD SPECIMEN / Unknown Venipuncture / Unknown 07/30/2023 1:52 PM CDT 07/30/2023 1:54 PM CDT Narrative [facility] - 07/31/2023 3:40 AM CDT In Adults, TSH values between 5.00 and 10.00 uIU/ml do not necessarily indicate the presence of Hypothyroidism. Correlation with clinical findings such as presence of goiter and/or Thyroperoxidase (TPO) Antibody may be helpful. For more information please refer to ARIEL 2004; 291: 228-238. Tien Mulligan MD CHEMISTRY [facility] [address] [place] [address], [place] * (ABNORMAL) LIPID PANEL W REFLEX MEASURED LDL (07/30/2023 1:52 PM CDT) CHOLESTEROL,TOTAL 189 100 - 199 mg/dL 07/31/2023 3:40 AM CDT [facility] TRAL LABORAT[facility] Comment: Cholesterol, Total Reference Ranges Desirable <200 mg/dL Borderline 200-239 mg/dL High >=240 mg/dL TRIGLYCERIDES 138 <150 mg/dL 07/31/2023 3:40 AM CDT [facility] HDL CHOLESTEROL 43 >40 mg/dL 3:40 AM CDT [facility] NON-HDL CHOLESTEROL 146(H) <145 mg/dl 07/31/2023 3:40 AM CDT [facility] CHOL/HDL RATIO 4.40 <4.50 07/31/2023 3:40 AM CDT [facility] LDL CHOLESTEROL 118 <=130 mg/dL 07/31/2023 3:40 AM CDT [facility] VLDL CHOLESTEROL 28 <=30 mg/dL 07/31/2023 3:40 AM CDT [facility] PROVIDER ORDERED STATUS RANDOM 07/31/2023 3:40 AM CDT [facility] Blood BLOOD SPECIMEN / Unknown Venipuncture / Unknown 07/30/2023 1:52 PM CDT 07/30/2023 1:54 PM CDT Tien Mulligan MD CHEMISTRY [facility] [address] [place] [address], [place] * MANUAL DIFFERENTIAL (07/30/2023 1:52 PM CDT) % NEUTROPHILS 66.0 % 07/30/2023 2:28 PM CDT [facility] % LYMPHOCYTES 27.0 % 07/30/2023 2:28 PM CDT [facility] % MONOCYTES 6.0 % 07/30/2023 2:28 PM CDT [facility] % EOSINOPHILS 1.0 % 07/30/2023 2:28 PM CDT [facility] % BASOPHILS 0.0 % 07/30/2023 2:28 PM CDT [facility] NEUTROPHILS ABSOLUTE 5.5 1.7 - 7.0 thou/cu mm 07/30/2023 2:28 PM CDT [facility] LYMPHOCYTES ABSOLUTE 2.3 0.9 - 2.9 thou/cu mm 07/30/2023 2:28 PM CDT [facility] MONOCYTES ABSOLUTE 0.5 <0.9 thou/cu mm 07/30/2023 2:28 PM CDT [facility] EOSINOPHILS ABSOLUTE 0.1 <0.5 thou/cu mm 07/30/2023 2:28 PM CDT [facility] BASOPHILS ABSOLUTE 0.0 <0.3 thou/cu mm 07/30/2023 2:28 PM CDT [facility] Blood BLOOD SPECIMEN / Unknown Venipuncture / Unknown 07/30/2023 1:52 PM CDT 07/30/2023 1:54 PM CDT Tien Mulligan MD HEMATOLOGY [facility] [address] [place] [address], * ALT (SGPT) (07/30/2023 1:52 PM CDT) ALT (SGPT) 50 10 - 50 IU/L 07/31/2023 3:40 AM CDT [facility] Blood BLOOD SPECIMEN / Unknown Venipuncture / Unknown 07/30/2023 1:52 PM CDT 07/30/2023 1:54 PM CDT Tien Mulligan MD CHEMISTRY [facility] [address] [place] [address], * (ABNORMAL) BASIC METABOLIC PANEL (07/30/2023 1:52 PM CDT) [facility] Signature SODIUM 141 136 - 145 mmol/L 07/31/2023 3:40 AM T [facility] POTASSIUM 4.1 3.5 - 5.1 mmol/L 07/31/2023 3:40 AM T [facility] CHLORIDE 104 98 - 107 mmol/L 07/31/2023 3:40 AM T [facility] CO2,TOTAL 28 22 - 29 mmol/L 07/31/2023 3:40 AM T [facility] ANION GAP 9 5 - 18 07/31/2023 3:40 AM T [facility] GLUCOSE 107(H) 70 - 99 mg/dL 07/31/2023 3:40 AM T [facility] CALCIUM 9.9 8.8 - 10.2 mg/dL 07/31/2023 3:40 AM T [facility] BUN 19 8 - 23 mg/dL 07/31/2023 3:40 AM [facility] CREATININE 1.59(H) 0.70 - 1.20 mg/dL 07/31/2023 3:40 AM [facility] BUN/CREAT RATIO 12 10 - 20 3:40 AM [facility] eGFR 48(L) >90 mL/min/1.7 3m2 07/31/2023 3:40 AM [facility] Comment:As of 2021, eG FR [...] Tien Mulligan MD CHEMISTRY Performing Organization Address [facility]/ZIP Co de Phone Number [facility] [address] [place] [address], * PSA TOTAL SCREEN - Dx Auto-associated (07/30/2023 1:52 PM CDT) PSA TOTAL (SCREEN) 2.94 <4.00 ng/mL 07/31/2023 3:40 AM CDT [facility] Blood BLOOD SPECIMEN / Unknown Venipuncture / Unknown 07/30/2023 1:52 PM CDT 07/30/2023 1:[address] [facility] - 07/31/2023 3:40 AM CDT The test [...] Tien Mulligan MD LABORATORY Performing Organization Address [facility] Co de Phone Number [facility] [address] [place] [address], * ANTI HCV (11/02/2019 2:00 PM CDT) HEPATITIS C ANTIBODY Non-React estela Non-React estela 11/02/2019 8:41 PM CDT [facility] Comment:Antibodies to HCV no t detected; does not exclude the possibility of exposure to HCV. Blood BLOOD SPECIMEN / Unknown Venipuncture / Unknown 11/02/2019 2:00 PM CDT 11/02/2019 2:00 PM CDT Tien Mulligan MD SEND OUTS Performing Organization Address [facility]/ZIP Co de Phone Number [facility] [address] [place] [address], [place] * COLONOSCOPY SCREENING (02/03/2019 8:53 AM RESTAURANT KITCHEN AND SERVICE MANAGER) Tien Mulligan MD GI PROCEDURE ORD from [...] 3:03 PM 01/19/2016 4:28 PM Care Teams Electrician Refinery Relationship Specialty Start Date End Date Tien Mull[place] [address] PCP - General 10/02/06
== END 2023-10-29 07:24 | disposition home or self-care (01) ==
LOC: INJ CL 07:25
PROVIDERS: PCP Family Medicine; Visit Provider Family Medicine
DX: M54.16 Radiculopathy, lumbar region (principal); M51.26 Other intervertebral disc displacement, lumbar region
CPT/HCPCS: 64483; J1100; Q9966

== ENCOUNTER 2024-08-18 07:34 | Outpatient (CLI) | payer MEDICARE, SELFPAY | END 2024-08-18 07:35 | disposition home or self-care (01) | LOC: INJ CL 07:36 | PROVIDERS: PCP Family Medicine; Visit Provider Family Medicine | DX: M54.16 Radiculopathy, lumbar region (principal); M51.26 Other intervertebral disc displacement, lumbar region | CPT/HCPCS: 64483; J1100; Q9966 ==